=== PATIENT | female | born 1945 | race African-American/Black ===

== ENCOUNTER 2019-04-08 16:02 | Inpatient (IN) | payer MEDICARE, OTHER ==
[~2019-04-08] VITALS: Ht 177.8 cm; Wt 110.7 kg
[2019-04-08 20:58] LABS: BASO # 0.1 x10^3/uL (0.0-0.2); BASO % 1 % (0-3); EOS # 0.1 x10^3/uL (0.0-0.7); EOS % 1 % (0-3); HEMOGLOBIN 11.8 g/dL (12.0-15.5); LYMPH # 2.3 x10^3/uL (1.0-4.8); LYMPH % 14 % (24-48); MEAN CORPUSCULAR HEMOGLOBIN 24 pg (25-35); MEAN CORPUSCULAR HGB CONC 32 g/dL (31-37); MEAN CORPUSCULAR VOLUME 76 fL (79-100); MONO # 0.9 x10^3/uL (0.0-1.1); MONO % 6 % (0-9); NEUT # 13.1 x10^3/uL (1.8-7.7); NEUT % 79 % (31-73); PLATELET COUNT 571 x10^3/uL (140-400); RED CELL DISTRIBUTION WIDTH 18.5 % (11.5-14.5); WHITE BLOOD COUNT 16.6 x10^3/uL (4.0-11.0)
[2019-04-08 21:08] LABS: ANION GAP 11 (6-14); BLOOD UREA NITROGEN 28 mg/dL (7-20); BUN/CREATININE RATIO 28 (6-20); CALCIUM 9.8 mg/dL (8.5-10.1); CARBON DIOXIDE 27 mmol/L (21-32); CHLORIDE 97 mmol/L (98-107); GFR 65.6; GLUCOSE 143 mg/dL (70-99); POTASSIUM 4.3 mmol/L (3.5-5.1); SODIUM 135 mmol/L (136-145)
[2019-04-08 21:14] LABS: ALBUMIN 2.6 g/dL (3.4-5.0); ALBUMIN/GLOBULIN RATIO 0.4 (1.0-1.7); ALK PHOS 92 U/L (46-116); ALT (SGPT) < 6 U/L (14-59); AST (SGOT) 13 U/L (15-37); TOTAL BILIRUBIN 0.3 mg/dL (0.2-1.0); TOTAL PROTEIN 9.7 g/dL (6.4-8.2)
[2019-04-08 21:20] LABS: % ATYL 1 % (0-0); % BANDS 1 % (0-9); % LYMPHS 22 % (24-48); % MONOS 6 % (0-10); % SEGS 70 % (35-66); HYPOCHROMIA SLIGHT; PLT ESTIMATE ADEQUATE (ADEQUATE)
[2019-04-08 21:21] LABS: ANISOCYTOSIS SLIGHT; SCHISTOCYTES OCC; TOXIC VACUOLATION SLIGHT
[2019-04-08] MEDS ORDERED: PIP/TAZO PER PHARMACY MC PRN (21:30)
--- NOTE | 2019-04-08 21:31 | PHYS DOC ---
Past Medical History Past Medical History: Anemia, Bipolar, Depression, Diabetes-Type II, Vascular Disease, Other Additional Past Medical Histor: VENOUS INSUFFICIENCY, LYMPHADEMA, CATARACTS Past Surgical History: No Surgical History Alcohol Use: None Drug Use: None Adult General Chief Complaint Chief Complaint: OTHER COMPLAINTS HPI HPI Patient is a 73 year old AA female who presents to the emergency department via EMS with complaints of worsening drainage from bilateral lower extremities and discoloration of bilateral feet. Patient states she has had ingrowing toenails of both of her feet with weeping wounds and drainage for several months. She states that the wound care nurse practitioner comes in the sepsis her in the [facility]. She denies any change in sensation of her feet, fever, shortness of breath, wheezing, cough, chest pain, abdominal pain, nausea, vomiting, or diarrhea. Patient night any pain in her right lower extremity, however she stated that she had a small amount of pain in her left foot but did not rate and on the pain scale. According to the patient's jail paperwork she has a history of lymphedema, venous insufficiency, anemia, type 2 diabetes, delusional disorders, and bipolar. Review of Systems Review of Systems Constitutional: Denies fever or chills [] Eyes: Denies redness, or eye pain [] HENT: Denies nasal congestion or sore throat [] Respiratory: Denies cough or shortness of breath [] Cardiovascular: No additional information not addressed in HPI [] GI: Denies abdominal pain, nausea, vomiting, or diarrhea [] : Denies dysuria or hematuria [] Musculoskeletal: Denies back pain; see history of present illness Integument: See history of present illness Neurologic: Denies headache Endocrine: Denies polyuria or polydipsia [] Complete systems were reviewed and found to be within normal limits, except as documented in this note. Current Medications Current Medications Allergies Allergies Allergies Coded Allergies Type Severity Reaction Last Updated Verified peanut Allergy Unknown 04/08/19 Yes Physical Exam Physical Exam Constitutional: Well developed, well nourished, no acute distress, non-toxic appearance, obese. [] HENT: Normocephalic, atraumatic, bilateral external ears normal, nose normal. [] Eyes: PERRLA, EOMI, conjunctiva normal, no discharge. [] Neck: Normal range of motion, no stridor. [] Cardiovascular:Heart rate regular rhythm Lungs & Thorax: Bilateral breath sounds clear to auscultation, Respirations even and unlabored, no retractions, no respiratory distress [] Abdomen: soft, no tenderness Skin: Warm, dry, no erythema; multiple nodules of bilateral feet and ankles, on arrival patient was in bilateral lower extremity leg dressings that were each saturated with purulent, malodorous drainage; there is open draining wound noted to the bottom of the left foot. Cap refill of bilateral lower extremities is less than 2 seconds Extremities: No cyanosis, ROM intact, 2+ edema right lower extremity, 3+ edema left lower extremity Neurologic: Alert and oriented X 3, no focal deficits noted. [] Psychologic: Affect normal, judgement normal, mood normal. [] Current Patient Data Vital Signs Vital Signs Date Time Temp Pulse Resp B/P (MAP) Pulse Ox O2 Delivery O2 Flow Rate FiO2 04/08/19 20:58 85 131/71 (91) 98 Room Air 04/08/19 20:00 97.8 20 97.8 Lab Values Laboratory Tests Test 04/08/19 20:00 04/08/19 20:58 White Blood Count 16.6 x10^3/uL (4.0-11.0) H Red Blood Count 4.90 x10^6/uL (3.50-5.40) Hemoglobin 11.8 g/dL (12.0-15.5) L Hematocrit 37.0 % (36.0-47.0) Mean Corpuscular Volume 76 fL (79-100) L Mean Corpuscular Hemoglobin 24 pg (25-35) L Mean Corpuscular Hemoglobin Concent 32 g/dL (31-37) Red Cell Distribution Width 18.5 % (11.5-14.5) H Platelet Count 571 x10^3/uL (140-400) H Neutrophils (%) (Auto) 79 % (31-73) H Lymphocytes (%) (Auto) 14 % (24-48) L Monocytes (%) (Auto) 6 % (0-9) Eosinophils (%) (Auto) 1 % (0-3) Basophils (%) (Auto) 1 % (0-3) Neutrophils # (Auto) 13.1 x10^3/uL (1.8-7.7) H Lymphocytes # (Auto) 2.3 x10^3/uL (1.0-4.8) Monocytes # (Auto) 0.9 x10^3/uL (0.0-1.1) Eosinophils # (Auto) 0.1 x10^3/uL (0.0-0.7) Basophils # (Auto) 0.1 x10^3/uL (0.0-0.2) Segmented Neutrophils % 70 % (35-66) H Band Neutrophils % 1 % (0-9) Lymphocytes % 22 % (24-48) L Atypical Lymphocytes % (Manual) 1 % (0-0) H Monocytes % 6 % (0-10) Toxic Vacuolation Slight Platelet Estimate Adequate (ADEQUATE) Large Platelets Occ Hypochromasia Slight Anisocytosis Slight Schistocytes Occ Sodium Level 135 mmol/L (136-145) L Potassium Level 4.3 mmol/L (3.5-5.1) Chloride Level 97 mmol/L (98-107) L Carbon Dioxide Level 27 mmol/L (21-32) Anion Gap 11 (6-14) Blood Urea Nitrogen 28 mg/dL (7-20) H Creatinine 1.0 mg/dL (0.6-1.0) Estimated GFR (Cockcroft-Gault) 65.6 BUN/Creatinine Ratio 28 (6-20) H Glucose Level 143 mg/dL (70-99) H Calcium Level 9.8 mg/dL (8.5-10.1) Total Bilirubin 0.3 mg/dL (0.2-1.0) Aspartate Amino Transferase (AST) 13 U/L (15-37) L Alanine Aminotransferase (ALT) < 6 U/L (14-59) L Alkaline Phosphatase 92 U/L (46-116) Creatine Kinase 54 U/L (26-192) Creatine Kinase MB (Mass) 1.0 ng/mL (0.0-3.6) Creatine Kinase MB Relative Index 1.9 % (0-4) Total Protein 9.7 g/dL (6.4-8.2) H Albumin 2.6 g/dL (3.4-5.0) L Albumin/Globulin Ratio 0.4 (1.0-1.7) L Lactic Acid Level 1.7 mmol/L (0.4-2.0) Laboratory Tests 04/08/19 20:00 Laboratory Tests 04/08/19 20:00 EKG EKG [] Radiology/Procedures Radiology/Procedures PROCEDURE: FOOT BILAT 3V 3 views bilateral feet HISTORY: Bilateral foot wounds AP lateral oblique views bilaterally There is cutaneous gross over the feet and ankles bilaterally this is especially seen over the dorsal left foot. There is moderate bunion deformity bilaterally left worse than right. There is no lytic destructive osseous changes. IMPRESSION: 1. Cutaneous lesions diffusely could be neurofibromatosis. 2. Bilateral bunion deformity.[] Course & Med Decision Making Course & Med Decision Making Pertinent Labs and Imaging studies reviewed. (See chart for details) [address] Cameron who is the admitting physician, and care was assumed following discussion of patient, ordered vancomycin and Zosyn for pharmacy to dose, in addition to a wound consult. Patient's vital signs stable. Patient remains afebrile, appears nontoxic, respirations even and unlabored. Patient will be admitted to the med/surg floor. Patient's case and plan of care also discussed with Dr. Batista [] Markie Disclaimer Dragzina Disclaimer This electronic medical record was generated, in whole or in part, using a voice recognition dictation system. Departure Departure Impression: Primary Impression: Bilateral lower leg cellulitis Disposition: ADMITTED INPATIENT Admitting Physician: YAAKOV SOLIS) Condition: STABLE Referrals: IBIS KEYS MD (PCP) YURIDIA BEAULIEU APRN Apr 08, 2019 21:31
[2019-04-08] MEDS ORDERED: PIPERACILLIN/TAZOBACTAM 3.375 GM in IV NORMAL SALINE 50ML 50 ML IV ONE (21:45)
[2019-04-08] MEDS ORDERED: VANCOMYCIN 2 GM in IV NORMAL SALINE 500ML BAG 500 ML IV ONE (23:30)
--- NOTE | 2019-04-08 23:53 | RAD ---
3 views bilateral feet HISTORY: Bilateral foot wounds AP lateral oblique views bilaterally There is cutaneous gross over the feet and ankles bilaterally this is especially seen over the dorsal left foot. There is moderate bunion deformity bilaterally left worse than right. There is no lytic destructive osseous changes. IMPRESSION: 1. Cutaneous lesions diffusely could be neurofibromatosis. 2. Bilateral bunion deformity. Electronically signed by: Robert Weiss III, MD (04/08/2019 11:50 PM) [facility]
[2019-04-09] MEDS: VANCOMYCIN PER PHARMACY MC PRN (01:52)
--- NOTE | 2019-04-09 01:53 | NUR ---
Pharmacy Vancomycin Dosing Note S:Consulted to monitor and dose vancomycin started 04/09/19. O:WILBERTO ALVARADO is a 73 year old F with Cellulitis . Height: 5 feet, 7 inches Weight: 104.588920 kg Shepherd Body Weight: 61.60 Adjusted Body Weight: 78.68 Dosing Weight: Actual Other Antibiotics: ZOSYN 3.375GM IV Q6H LABS: Last BUN: 28 Last Creatinine: 1.0 Creatinine Clearance: 61 mL/min Last WBC: 16.6 Last Procalcitonin: Tmax (past 24 hours): Microbiology: I/O: Drug Levels: Last level: on at Last dose given at Vancomycin Dosing: Loading Dose: 2000 mg x1 04/09/19 0200 Dosing Weight: Actual Target Trough: 10-20 A: Based on: Actual Wt and CrCl P: 1. 04/09/19 1400 Vancomycin 1500 mg IV q12h 2. Follow up Trough level on 04/10/18 at 1330 3. Pharmacy will continue to monitor, follow and adjust therapy as needed. BEVERLY RAMSEY RPH, 04/09/19 0153 Signed: 04/09/19 at 0154 by BEVERLY RAMSEY RPH PHA
[2019-04-09 03:00] VITALS: BP 115/60
[2019-04-09] MEDS: PIPERACILLIN/TAZOBACTAM 3.375 GM in IV NORMAL SALINE 50ML 50 ML IV SCH ×3 (05:33→17:36)
[2019-04-09] MEDS ORDERED: CYAN500T17 PO (06:56)
[2019-04-09] MEDS ORDERED: SPIR25TA5 PO (06:56)
[2019-04-09] MEDS ORDERED: ATOR80TA72 PO (06:56)
[2019-04-09] MEDS ORDERED: METF500T16 PO (06:56)
[2019-04-09] MEDS ORDERED: ASPI-630 PO (06:56)
[2019-04-09] MEDS ORDERED: FURO20TA3 PO (06:56)
[2019-04-09] MEDS ORDERED: RISP2TAB3 PO (06:56)
[2019-04-09] MEDS ORDERED: METF10007 PO (06:56)
[2019-04-09] MEDS ORDERED: ERGO800010 PO (06:56)
[2019-04-09 07:00] VITALS: BP 114/64
[2019-04-09 11:00] VITALS: BP 109/57
[2019-04-09] MEDS: VANCOMYCIN 1.5 GM in IV NORMAL SALINE 500ML BAG 500 ML IV SCH (14:04)
--- NOTE | 2019-04-09 14:38 | NUR ---
Wound Care: Patient seen per wound care consult. See wound assessment. Patient has elephantiasis to bilateral lower legs. Wounds cleansed and assessed. Recommendations for ABD pads, blue chux pads and kerlix. Patient has been seen by our wound care HAZ TECH. Dressings applied. No other wounds noted upon complete head to toe assessment. Dressing change instructions left in room. Will follow patient regarding wound care. Bed lowered and call light in reach.
[2019-04-09 15:00] VITALS: BP 102/57
[2019-04-09 19:00] VITALS: BP 114/54
--- NOTE | 2019-04-09 19:28 | HP ---
ADMIT DATE: 04/08/2019 CHIEF COMPLAINT: Lower extremity cellulitis. HISTORY OF PRESENT ILLNESS: The patient is a pleasant 73-year-old female, presents to the emergency room with lower extremity cellulitis that has been coming on for several days. I think she actually has a chronic issue with cellulitis. She rates her symptoms as 7/10. She has associated anxiety about this. She tried increasing some home medications, but that was not working. The wounds on her feet are quite severe. She has got a lot of drainage. There are open wounds. She also has associated edema. She lives in a [facility]. I discussed the case with emergency room physician. We are going to admit the patient, consult Wound Care, and give her intravenous antibiotics. PAST MEDICAL HISTORY: Anemia, bipolar, depression, diabetes, hypertension, hyperlipidemia, venous insufficiency, lymphedema, cataracts. ALLERGIES: PEANUTS. FAMILY HISTORY: Coronary artery disease. SOCIAL HISTORY: She does not drink, smoke, or take drugs. She lives in a [facility]. MEDICATIONS: Reviewed; please refer to the MRAD. REVIEW OF SYSTEMS: GENERAL: No history of weight change, weakness, or fevers. SKIN: No bruising, hair changes, or rashes. EYES: No blurred, double, or loss of vision. NOSE AND THROAT: No history of nosebleeds, hoarseness, or sore throat. HEART: No history of palpitations, chest pain, or shortness of breath on exertion. LUNGS: Denies cough, hemoptysis, wheezing, or shortness of breath. GASTROINTESTINAL: Denies changes in appetite, nausea, vomiting, diarrhea, or constipation. GENITOURINARY: No history of frequency, urgency, hesitancy, or nocturia. NEUROLOGIC: Denies history of numbness, tingling, tremor, or weakness. PSYCHIATRIC: No history of panic, anxiety, or depression. ENDOCRINE: No history of heat or cold intolerance, polyuria, or polydipsia. EXTREMITIES: She complains of lower extremity pain, swelling, and erythema. PHYSICAL EXAMINATION: VITALS: Within normal limits and are stable. GENERAL: No apparent distress. Alert and oriented. HEENT: Normal cephalic, atraumatic. External auditory canals are patent. EYES: Extraocular muscles are intact. Pupils are equally round and reactive to light and accommodation. MUSKULOSKELETAL: Well developed, well nourished, good range of motion. ENDOCRINE: No thyromegaly was palpated. LYMPHATICS: No cervical chain or axillary nodes were noted. HEMATOPOIETIC: No bruising. NECK: Supple, no JVD, no thyromegaly was noted. LUNGS: Clear to auscultation in all lung med[place] without rhonchi or wheezing. HEART: RRR, S1, S2 present. Peripheral pulses intact, no obvious murmurs were noted. ABDOMEN: Soft, nontender. Positive bowel sounds no organomegaly, normal bowel sounds. EXTREMITIES: She has severe wounds on her feet with erythema, drainage, open wounds, and edema; please see the pictures. NEUROLOGIC: Normal speech, normal tone, A and O x3, moves all extremities, no obvious focal deficits. PSYCHIATRIC: Normal affect, normal mood, stable. SKIN: No ulcerations or rashes, good skin turgor, no jaundice. VASCULAR: Good capillary refill, neurovascular bundle appears to be intact. LABORATORY DATA: White count is 16, hemoglobin 12; sodium is 135, BUN is 20. ASSESSMENT AND PLAN: Severe lower extremity cellulitis and open wounds, probably secondary to her vascular insufficiency secondary to diabetes. The patient is being admitted. We will start intravenous antibiotics, consult Wound Care; home medications; deep vein thrombosis prophylaxis; full code; trend her labs. Prognosis long-term is guarded. SAL TRENT DO DR: INDIRA/geo JOB#: [id number] / [id number]
[2019-04-09] MEDS: LACTOBACILLUS RHAMNOSUS GG 1 CAPSULE. PO SCH (21:19)
[2019-04-09 23:00] VITALS: BP 96/68
[2019-04-10] MEDS: PIPERACILLIN/TAZOBACTAM 3.375 GM in IV NORMAL SALINE 50ML 50 ML IV SCH ×4 (00:27→18:00)
[2019-04-10] MEDS: VANCOMYCIN 1.5 GM in IV NORMAL SALINE 500ML BAG 500 ML IV SCH (02:40)
[2019-04-10 03:00] VITALS: BP 109/54
[2019-04-10 07:00] VITALS: BP 124/69
[2019-04-10] MEDS: LACTOBACILLUS RHAMNOSUS GG 1 CAPSULE. PO SCH ×2 (09:26→21:23)
--- NOTE | 2019-04-10 10:09 | PDOC ---
PROGRESS NOTES Chief Complaint Chief Complaint Past Medical History Past Medical History Past Medical History: Anemia, Bipolar, Depression, Diabetes-Type II, Vascular Disease, Other Additional Past Medical Histor: VENOUS INSUFFICIENCY, LYMPHADEMA, CATARACTS Past Surgical History: No Surgical History Alcohol Use: None Drug Use: None History of Present Illness History of Present Illness ASSESSMENT AND PLAN: Severe lower extremity cellulitis and open wounds, vascular insufficiency diabetes. Cutaneous lesions diffusely could be neurofibromatosis. admitted. intravenous antibiotics, consult Wound Care; home medications; deep vein thrombosis prophylaxis; full code; id consult Prognosis long-term is guarded. may need transfer to [facility] 37 min pt exam, chart review, > 50% of time spent with exam, chart review, pt care coordination Vitals Vitals Vital Signs Date Time Temp Pulse Resp B/P (MAP) Pulse Ox O2 Delivery O2 Flow Rate FiO2 04/10/19 09:28 Room Air 04/10/19 07:00 98.3 65 20 124/69 (87) 100 98.3 Physical Exam Physical Exam EYES: Extraocular muscles are intact. Pupils are equally round and reactive to light and accommodation. MUSKULOSKELETAL: Well developed, well nourished, good range of motion. ENDOCRINE: No thyromegaly was palpated. LYMPHATICS: No cervical chain or axillary nodes were noted. HEMATOPOIETIC: No bruising. NECK: Supple, no JVD, no thyromegaly was noted. LUNGS: Clear to auscultation in all lung medina without rhonchi or wheezing. HEART: RRR, S1, S2 present. Peripheral pulses intact, no obvious murmurs were noted. ABDOMEN: Soft, nontender. Positive bowel sounds no organomegaly, normal bowel sounds. EXTREMITIES: She has severe wounds on her feet with erythema, drainage, open wounds, and edema; MULTIPLE Fibroid type lesions NEUROLOGIC: Normal speech, normal tone, A and O x3, moves all extremities, no obvious focal deficits. PSYCHIATRIC: Normal affect, normal mood, stable. SKIN: no jaundice. VASCULAR: Good capillary refill, neurovascular bundle appears to be intact. General: Alert, Oriented X3, Cooperative, No acute distress, mild distress Lungs: Clear Abdomen: Soft, No tenderness Extremities: No cyanosis Labs LABS PATIENT: WILBERTO ALVARADO ACCOUNT: [id number] : 1945 LOCATION: [address] [place] [address] AGE: 73 SEX: F EXAM STATUS: ADM IN ORD. PHYSICIAN: YURIDIA BEAULIEU APRN REASON: BILATERAL FOOT WOUNDS PROCEDURE: FOOT BILAT 3V 3 views bilateral feet HISTORY: Bilateral foot wounds AP lateral oblique views bilaterally There is cutaneous gross over the feet and ankles bilaterally this is especially seen over the dorsal left foot. There is moderate bunion deformity bilaterally left worse than right. There is no lytic destructive osseous changes. IMPRESSION: 1. Cutaneous lesions diffusely could be neurofibromatosis. 2. Bilateral bunion deformity. Electronically signed by: Blanca Tinoco III, MD (04/08/2019 11:50 PM) [facility] DICTATED and SIGNED BY: BLANCA TINOCO III, MD DATE: 04/08/192349 Laboratory Tests Test 04/09/19 11:04 04/09/19 16:39 04/09/19 20:36 04/10/19 07:36 Glucose (Fingerstick) 162 mg/dL (70-99) 116 mg/dL (70-99) 156 mg/dL (70-99) 95 mg/dL (70-99) Assessment and Plan Assessmemt and Plan Problems Medical Problems: (1) Bilateral lower leg cellulitis Status: Acute Comment Review of Relevant I have reviewed the following items mariela (where applicable) has been applied. Labs Laboratory Tests Test 04/08/19 20:00 04/08/19 20:58 04/09/19 07:59 04/09/19 11:04 White Blood Count 16.6 x10^3/uL (4.0-11.0) Red Blood Count 4.90 x10^6/uL (3.50-5.40) Hemoglobin 11.8 g/dL (12.0-15.5) Hematocrit 37.0 % (36.0-47.0) Mean Corpuscular Volume 76 fL (79-100) Mean Corpuscular Hemoglobin 24 pg (25-35) Mean Corpuscular Hemoglobin Concent 32 g/dL (31-37) Red Cell Distribution Width 18.5 % (11.5-14.5) Platelet Count 571 x10^3/uL (140-400) Neutrophils (%) (Auto) 79 % (31-73) Lymphocytes (%) (Auto) 14 % (24-48) Monocytes (%) (Auto) 6 % (0-9) Eosinophils (%) (Auto) 1 % (0-3) Basophils (%) (Auto) 1 % (0-3) Neutrophils # (Auto) 13.1 x10^3/uL (1.8-7.7) Lymphocytes # (Auto) 2.3 x10^3/uL (1.0-4.8) Monocytes # (Auto) 0.9 x10^3/uL (0.0-1.1) Eosinophils # (Auto) 0.1 x10^3/uL (0.0-0.7) Basophils # (Auto) 0.1 x10^3/uL (0.0-0.2) Segmented Neutrophils % 70 % (35-66) Band Neutrophils % 1 % (0-9) Lymphocytes % 22 % (24-48) Atypical Lymphocytes % (Manual) 1 % (0-0) Monocytes % 6 % (0-10) Toxic Vacuolation Slight Platelet Estimate Adequate (ADEQUATE) Large Platelets Occ Hypochromasia Slight Anisocytosis Slight Schistocytes Occ Sodium Level 135 mmol/L (136-145) Potassium Level 4.3 mmol/L (3.5-5.1) Chloride Level 97 mmol/L (98-107) Carbon Dioxide Level 27 mmol/L (21-32) Anion Gap 11 (6-14) Blood Urea Nitrogen 28 mg/dL (7-20) Creatinine 1.0 mg/dL (0.6-1.0) Estimated GFR (Cockcroft-Gault) 65.6 BUN/Creatinine Ratio 28 (6-20) Glucose Level 143 mg/dL (70-99) Calcium Level 9.8 mg/dL (8.5-10.1) Total Bilirubin 0.3 mg/dL (0.2-1.0) Aspartate Amino Transf (AST/SGOT) 13 U/L (15-37) Alanine Aminotransferase (ALT/SGPT) < 6 U/L (14-59) Alkaline Phosphatase 92 U/L (46-116) Creatine Kinase 54 U/L (26-192) Creatine Kinase MB (Mass) 1.0 ng/mL (0.0-3.6) Creatine Kinase MB Relative Index 1.9 % (0-4) Total Protein 9.7 g/dL (6.4-8.2) Albumin 2.6 g/dL (3.4-5.0) Albumin/Globulin Ratio 0.4 (1.0-1.7) Lactic Acid Level 1.7 mmol/L (0.4-2.0) Glucose (Fingerstick) 114 mg/dL (70-99) 162 mg/dL (70-99) Test 04/09/19 16:39 04/09/19 20:36 04/10/19 07:36 Glucose (Fingerstick) 116 mg/dL (70-99) 156 mg/dL (70-99) 95 mg/dL (70-99) Laboratory Tests Test 04/09/19 11:04 04/09/19 16:39 04/09/19 20:36 04/10/19 07:36 Glucose (Fingerstick) 162 mg/dL (70-99) 116 mg/dL (70-99) 156 mg/dL (70-99) 95 mg/dL (70-99) Medications Current Medications Vancomycin HCl (Vanco Per Pharmacy) 1 each PRN DAILY PRN MC SEE COMMENTS Last administered on 04/09/19at 01:52; Start 04/08/19 at 21:30 Piperacillin Sod/ Tazobactam Sod (Zosyn Per Pharmacy) 1 each PRN DAILY PRN MC SEE COMMENTS; Start 04/08/19 at 21:30 Piperacillin Sod/ Tazobactam Sod 3.375 gm/Sodium Chloride 50 ml @ 100 mls/hr 1X ONCE IV Last administered on 04/08/19at 21:50; Start 04/08/19 at 21:45; Stop 04/08/19 at 22:14; Status DC Vancomycin HCl 2 gm/Sodium Chloride 500 ml @ 250 mls/hr 1X ONCE IV Last administered on 04/09/19at 02:04; Start 04/08/19 at 23:30; Stop 04/09/19 at 01:30; Status DC Piperacillin Sod/ Tazobactam Sod 3.375 gm/Sodium Chloride 50 ml @ 100 mls/hr Q6HRS IV Last administered on 04/10/19at 06:11; Start 04/09/19 at 06:00 Vancomycin HCl 1.5 gm/Sodium Chloride 500 ml @ 250 mls/hr Q12H IV Last administered on 04/10/19at 02:40; Start 04/09/19 at 14:00 Vancomycin HCl (Vancomycin Trough Level) 1 each 1X ONCE MC ; Start 04/10/19 at 13:30; Stop 04/10/19 at 13:31 Lactobacillus Rhamnosus (Culturelle) 1 cap BID PO Last administered on 04/10/19at 09:26; Start 04/09/19 at 21:00 Active Scripts Active Reported Spironolactone 25 Mg Tablet 1 Tab PO DAILY Risperidone 2 Mg Tablet 2 Mg PO DAILY Metformin Hcl 1,000 Mg Tablet 1,000 Mg PO [id number] Metformin Hcl 500 Mg Tablet 500 Mg PO QEVNG Furosemide 20 Mg Tablet 20 Mg PO DAILY Ergocalciferol (Ergocalciferol (Vitamin D2)) 8,000 Unit/1 Ml Drops 50,000 Unit PO WEEKLY B-12 (Cyanocobalamin (Vitamin B-12)) 500 Mcg Tablet 1 Tab PO DAILY 30 Days Atorvastatin Calcium 80 Mg Tablet 10 Mg PO QHS Aspirin 81 Mg Tab.chew 1 Tab PO DAILY Vitals/I & O Vital Sign - Last 24 Hours 04/09/19 04/09/19 04/09/19 04/09/19 11:00 15:00 19:00 19:45 Temp 98.0 98.8 98.0 98.0 98.8 98.0 Pulse 85 82 85 Resp 18 18 20 B/P (MAP) 109/57 (74) 102/57 (72) 114/54 (74) Pulse Ox 96 97 98 O2 Delivery Room Air Room Air Room Air Room Air 04/09/19 04/10/19 04/10/19 04/10/19 23:00 03:00 07:00 09:28 Temp 98.6 97.6 98.3 98.6 97.6 98.3 Pulse 76 63 65 Resp 20 18 20 B/P (MAP) 96/68 (77) 109/54 (72) 124/69 (87) Pulse Ox 100 98 100 O2 Delivery Room Air Room Air Room Air Room Air Intake and Output 04/09/19 04/09/19 04/10/19 15:00 23:00 07:00 Intake Total 100 ml 1250 ml 100 ml Balance 100 ml 1250 ml 100 ml TYLER WHITE MD Apr 10, 2019 10:09
[2019-04-10 11:00] VITALS: BP 116/54
--- NOTE | 2019-04-10 12:27 | NUR ---
0600 zosyn did not get unclamped so running that dose for pt 1200 dose of zosyn. will continue to monitor.
[2019-04-10 14:19] LABS: BASO # 0.1 x10^3/uL (0.0-0.2); BASO % 1 % (0-3); EOS # 0.2 x10^3/uL (0.0-0.7); EOS % 2 % (0-3); HEMATOCRIT 31.9 % (36.0-47.0); HEMOGLOBIN 10.4 g/dL (12.0-15.5); LYMPH # 1.5 x10^3/uL (1.0-4.8); LYMPH % 14 % (24-48); MEAN CORPUSCULAR HEMOGLOBIN 25 pg (25-35); MEAN CORPUSCULAR HGB CONC 33 g/dL (31-37); MEAN CORPUSCULAR VOLUME 75 fL (79-100); MONO # 0.8 x10^3/uL (0.0-1.1); MONO % 8 % (0-9); NEUT % 76 % (31-73); PLATELET COUNT 498 x10^3/uL (140-400); RED BLOOD COUNT 4.24 x10^6/uL (3.50-5.40); RED CELL DISTRIBUTION WIDTH 18.3 % (11.5-14.5); WHITE BLOOD COUNT 10.6 x10^3/uL (4.0-11.0)
[2019-04-10 14:29] LABS: CREATININE 0.9 mg/dL (0.6-1.0); GFR 74.1; POTASSIUM 3.9 mmol/L (3.5-5.1)
[2019-04-10 14:35] LABS: VANC TR 20.4 mcg/mL (10.0-20.0)
[2019-04-10] MEDS ORDERED: ONDANSETRON PF 4 MG/2 ML VIAL. IV PRN (14:45)
[2019-04-10] MEDS ORDERED: DOCUSATE SODIUM 100 MG CAPSULE. PO PRN (14:45)
[2019-04-10] MEDS ORDERED: LORazepam 0.5 MG TABLET PO PRN (14:45)
[2019-04-10] MEDS ORDERED: guaiFENesin ORAL 200 MG/10 ML LIQUID. PO PRN (14:45)
[2019-04-10] MEDS ORDERED: ALBUTEROL SULFATE 2.5 MG/3 ML NEBU. NEB PRN (14:45)
[2019-04-10] MEDS ORDERED: MAG HYDROX/ALUMINUM HYD/SIMETH 30 ML ORAL.SUSP PO PRN (14:45)
[2019-04-10] MEDS ORDERED: 0.9 % SODIUM CHLORIDE 10 ML DISP.SYRIN. IV PRN (14:45)
[2019-04-10] MEDS ORDERED: cloNIDine HCL 0.1 MG TABLET PO PRN (14:45)
[2019-04-10] MEDS ORDERED: ACETAMINOPHEN 325 MG TABLET. PO PRN (14:45)
[2019-04-10] MEDS: VANCOMYCIN PER PHARMACY MC PRN (14:53)
[2019-04-10 15:00] VITALS: BP 95/47
--- NOTE | 2019-04-10 15:00 | NUR ---
Pharmacy Vancomycin Dosing Note S:Consulted to monitor and dose vancomycin started 04/09/19. O:WILBERTO ALVARADO is a 73 year old F with Cellulitis . Height: 5 feet, 10 inches Weight: 110.570459 kg Lohn Body Weight: 68.50 Adjusted Body Weight: 82.82 Dosing Weight: Actual Other Antibiotics: ZOSYN 3.375GM IV Q6H LABS: Last BUN: 28 Last Creatinine: 1.0 Creatinine Clearance: 61 mL/min Last WBC: 16.6 Last Procalcitonin: Tmax (past 24 hours): Microbiology: I/O: Drug Levels: Last Trough level: 20.4 on 04/10/19 at 1400 Last dose given 04/10/19 at 0200 Vancomycin Dosing: Loading Dose: 2000 mg x1 Dosing Weight: Actual Target Trough: 10-20 A: Based on: LEVEL P: 1. Change Vancomycin 1500 mg IV q18h 2. Follow up Trough level NEEDED 3. Pharmacy will continue to monitor, follow and adjust therapy as needed. FROILAN RECINOS Mady, 04/10/19 1500
[2019-04-10] MEDS: IV NORMAL SALINE 1000ML BAG 1,000 ML IV SCH (15:18)
--- NOTE | 2019-04-10 15:48 | PDOC ---
Infectious Disease Note Vital Signs: Vital Signs Vital Signs Date Time Temp Pulse Resp B/P (MAP) Pulse Ox O2 Delivery O2 Flow Rate FiO2 04/10/19 15:00 98.4 67 20 95/47 (63) 99 Room Air 98.4 Physical Exam: PHYSICAL EXAM Medications: Inpatient Meds: Current Medications Medications (Trade) Dose Ordered Sig/Curly Start Time Stop Time Status Last Admin Dose Admin Acetaminophen (Tylenol) 650 mg PRN Q4HRS PRN 04/10/19 14:45 Al Hydroxide/Mg Hydroxide (Mylanta Plus Xs) 30 ml PRN DAILY PRN 04/10/19 14:45 Albuterol Sulfate (Ventolin Neb Soln) 2.5 mg PRN Q4HRS PRN 04/10/19 14:45 Clonidine HCl (Catapres) 0.1 mg PRN Q6HRS PRN 04/10/19 14:45 Docusate Sodium (Colace) 100 mg PRN BID PRN 04/10/19 14:45 Guaifenesin (Robitussin) 200 mg PRN Q4HRS PRN 04/10/19 14:45 Lactobacillus Rhamnosus (Culturelle) 1 cap BID 04/09/19 21:00 04/10/19 09:26 1 CAP Lorazepam (Ativan) 0.5 mg PRN Q4HRS PRN 04/10/19 14:45 Ondansetron HCl (Zofran) 4 mg PRN Q4HRS PRN 04/10/19 14:45 Piperacillin Sod/ Tazobactam Sod (Zosyn Per Pharmacy) 1 each PRN DAILY PRN 04/08/19 21:30 Piperacillin Sod/ Tazobactam Sod 3.375 gm/Sodium Chloride 50 ml @ 100 mls/hr Q6HRS 04/09/19 06:00 04/10/19 12:24 100 MLS/HR Sodium Chloride 1,000 ml @ 60 mls/hr [id number] 04/10/19 14:39 04/10/19 15:18 60 MLS/HR Sodium Chloride (Normal Saline Flush) 3 ml QSHIFT PRN 04/10/19 14:45 Vancomycin HCl (Vanco Per Pharmacy) 1 each PRN DAILY PRN 04/08/19 21:30 04/10/19 14:53 1 EACH Vancomycin HCl (Vancomycin Trough Level) 1 each 1X ONCE 04/10/19 13:30 04/10/19 13:31 DC 04/10/19 13:30 1 EACH Vancomycin HCl 1.5 gm/Sodium Chloride 500 ml @ 250 mls/hr Q18H 04/10/19 17:00 Vancomycin HCl 2 gm/Sodium Chloride 500 ml @ 250 mls/hr 1X ONCE 04/08/19 23:30 04/09/19 01:30 DC 04/09/19 02:04 250 MLS/HR Labs: Lab Laboratory Tests Test 04/09/19 16:39 04/09/19 20:36 04/10/19 07:36 04/10/19 10:56 Glucose (Fingerstick) 116 mg/dL (70-99) 156 mg/dL (70-99) 95 mg/dL (70-99) 136 mg/dL (70-99) Test 04/10/19 14:00 White Blood Count 10.6 x10^3/uL (4.0-11.0) Red Blood Count 4.24 x10^6/uL (3.50-5.40) Hemoglobin 10.4 g/dL (12.0-15.5) Hematocrit 31.9 % (36.0-47.0) Mean Corpuscular Volume 75 fL (79-100) Mean Corpuscular Hemoglobin 25 pg (25-35) Mean Corpuscular Hemoglobin Concent 33 g/dL (31-37) Red Cell Distribution Width 18.3 % (11.5-14.5) Platelet Count 498 x10^3/uL (140-400) Neutrophils (%) (Auto) 76 % (31-73) Lymphocytes (%) (Auto) 14 % (24-48) Monocytes (%) (Auto) 8 % (0-9) Eosinophils (%) (Auto) 2 % (0-3) Basophils (%) (Auto) 1 % (0-3) Neutrophils # (Auto) 8.0 x10^3/uL (1.8-7.7) Lymphocytes # (Auto) 1.5 x10^3/uL (1.0-4.8) Monocytes # (Auto) 0.8 x10^3/uL (0.0-1.1) Eosinophils # (Auto) 0.2 x10^3/uL (0.0-0.7) Basophils # (Auto) 0.1 x10^3/uL (0.0-0.2) Sodium Level 139 mmol/L (136-145) Potassium Level 3.9 mmol/L (3.5-5.1) Chloride Level 104 mmol/L (98-107) Carbon Dioxide Level 29 mmol/L (21-32) Anion Gap 6 (6-14) Blood Urea Nitrogen 14 mg/dL (7-20) Creatinine 0.9 mg/dL (0.6-1.0) Estimated GFR (Cockcroft-Gault) 74.1 Glucose Level 137 mg/dL (70-99) Calcium Level 9.0 mg/dL (8.5-10.1) Vancomycin Level Trough 20.4 mcg/mL (10.0-20.0) Vancomycin Last Dose Date 04/10/19 Vancomycin Last Dose Time 0200 Objective: Assessment: Pt seen and examined Plan: Plan of Care ID consult dictated [id number] Thank you ULISES SCHAEFER MD Apr 10, 2019 15:48
--- NOTE | 2019-04-10 16:12 | NUR ---
Pharmacy Vancomycin Dosing Note S:Consulted to monitor and dose vancomycin started 04/09/19. O:WILBERTO ALVARADO is a 73 year old F with Cellulitis . Height: 5 feet, 10 inches Weight: 110.972674 kg Mcintosh Body Weight: 68.50 Adjusted Body Weight: 82.82 Dosing Weight: Actual Other Antibiotics: ZOSYN 3.375GM IV Q6H LABS: Last BUN: 28 Last Creatinine: 1.0 Creatinine Clearance: 61 mL/min Last WBC: 16.6 Last Procalcitonin: Tmax (past 24 hours): Microbiology: I/O: Drug Levels: Last Trough level: 20.4 on 04/10/19 at 1400 Last dose given 04/10/19 at 0200 Vancomycin Dosing: Loading Dose: 2000 mg x1 Dosing Weight: Actual Target Trough: 10-20 A: Based on: LEVEL (ROEL 30 MINUTES LATE) P: 1. Change Vancomycin 1500 mg IV q18h 2. Follow up Trough level NEEDED 3. Pharmacy will continue to monitor, follow and adjust therapy as needed. FROILAN RECINOS [facility], 04/10/19 [id number]
[2019-04-10] MEDS ORDERED: VANCOMYCIN 1.5 GM in IV NORMAL SALINE 500ML BAG 500 ML IV SCH (17:00)
--- NOTE | 2019-04-10 17:59 | NUR ---
was unable to give 1600 abx and still unable to give 1800 abx due to no venous access. pt needs antibiotics so will leave on eMAR until venous access is obtained. pt is getting a PICC line lalaight, will notify night RN. notified dr edwards of situation. notified pharmacy and they stated it was ok as long as pt receives abx's as soon as possible. will continue to monitor.
[2019-04-10 19:00] VITALS: BP 112/51
--- NOTE | 2019-04-10 19:26 | NUR ---
2 nurses attempted on day shift to place and IV catheter on this pt at 1430. called nursing filter press supervisor but she was unable to attempt an IV. received an order for a midline catheter to be placed but pt does not want one at this time and they are unable to be here until midnight. notified night RN, Perla. Griselda RN at night is attempting an IV at this time. will continue to monitor.
[2019-04-10] MEDS: LINEZOLID 600 MG TABLET PO SCH (21:23)
[2019-04-10 23:00] VITALS: BP 122/58
[2019-04-11] MEDS: PIPERACILLIN/TAZOBACTAM 3.375 GM in IV NORMAL SALINE 50ML 50 ML IV SCH ×4 (00:55→17:31)
--- NOTE | 2019-04-11 01:45 | CONS ---
DATE OF CONSULTATION: REFERRING PHYSICIAN: Dr. Bunn. REASON FOR CONSULTATION: Foot and ankle wound. HISTORY OF PRESENT ILLNESS: A 73-year-old female residing at care home, was brought to the ER on 04/09/2019 with worsening drainage from both lower extremities. The patient has chronic venous stasis with elephantiasis, and cobblestoning with venous stasis. The patient has chronic changes of dependent edema, has crusted lesions. She has increased drainage over the several months. Wound care practitioner came to the care home. She denies any fevers, chills, nausea, vomiting, diarrhea, abdominal pain. White count was elevated at 16.6. Lactate was normal at 1.7. Creatinine was 1.0. The patient underwent x-ray of both lower extremities, which showed cutaneous lesion diffusely, could be from neurofibromatosis, bilateral bunion deformity. The patient was started on IV vancomycin and Zosyn. ID consult has been requested for antibiotic management. Today, the patient states that she feels that her edema is slightly improved, though per nursing, she continues to still have drainage from numerous wounds in both the lower extremities. She does have chronic lymphedema as above with chronic venous stasis, has dependent edema. Usually whenever she tries to elevate her leg, her edema goes down. She denies being on any recent antibiotics. She has been evaluated by Plastic Surgery at and has followed by wound team there also. Denies any recent antibiotic treatment. Denies hospitalization at other hospitals for any recent infection. PAST MEDICAL HISTORY: Diabetes, morbid obesity, chronic venous stasis, chronic lymphedema, hyperlipidemia, depression, bipolar disorder. REVIEW OF SYSTEMS: Negative for fevers, chills, nausea, vomiting, diarrhea, headache, sore throat, difficulty swallowing, nausea, vomiting, diarrhea, abdominal pain, shortness of breath, has chronic lymphedema as above, chronic wounds. CURRENT MEDICATION: IV vancomycin and Zosyn. Other medications reviewed in medication list. ALLERGIES: PEANUT. SOCIAL HISTORY: Denies smoking, ETOH, or illicit drug use. snf resident. PHYSICAL EXAMINATION: VITAL SIGNS: Temperature 98.4, pulse 67, respiratory rate 20, blood pressure 95/47, oxygen saturation 99% on room air. GENERAL: Alert and oriented x 3 female, well-developed, well-nourished, obese, sitting in chair, in no acute distress, pleasant, cooperative. HEENT: Normocephalic, atraumatic, anicteric, edentulous. No oral lesions. NECK: Supple, no JVD. LUNGS: Clear bilaterally. No wheezing. HEART: S1, S2. No gallops or murmurs. ABDOMEN: Soft, nontender, obese. Bowel sounds present. EXTREMITIES: Both lower extremity wounds are dressed. 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 NEUROLOGIC: Alert and oriented x 3, grossly nonfocal. PSYCHIATRIC: Cooperative, appropriate mood and affect. DERMATOLOGIC: Warm and dry. No generalized rash except for above. LABORATORY DATA: WBC 16.6, was 10.6, hemoglobin 10.4, hematocrit 31.9, platelets 498. Sodium 139, potassium 3.9, chloride 104, bicarbonate 29, BUN 14, creatinine 0.9, glucose 137, calcium 9.0. Vancomycin trough 20.4. IMAGING: Foot x-ray, cutaneous lesions diffusely, could be from neurofibromatosis, bilateral bunion deformity. Blood culture pending. Anaerobic-aerobic culture from wound swab pending. IMPRESSION: 1. History of chronic venous stasis and lymphedema with elephantiasis, and cobblestoning like nodules, extensive with superficial ulceration and weeping lesions from chronic venous stasis below the knees bilaterally. 2. Superimposed cellulitis. 3. Vascular insufficiency. 4. Diabetes mellitus. 5. Anemia. 6. Bipolar disorder. 7. Depression. 8. Hypertension. 9. Hyperlipidemia. 10. Obesity. RECOMMENDATIONS: 1. Continue Zosyn. 2. Discontinue vancomycin. 3. Start Zyvox. 4. Start micafungin. 5. Follow up cultures and labs. 6. Continue supportive care. 7. Continue wound management per wound team. 8. Elevate leg. 9. Optimal edema control. 10. Optimal diabetes control. 11. Discussed with nursing staff. Thank you, Dr. Bunn for consulting Infectious Disease to participate in this patient's care. If you have any questions, do not hesitate to contact me. ULISES SCHAEFER MD DR: COLTON/geo JOB#: [id number] / [id number]
[2019-04-11] MEDS: MICAFUNGIN 100 MG in IV DEXTROSE 5% 100ML 100 ML IV SCH ×2 (01:53→14:59)
[2019-04-11 03:00] VITALS: BP 118/68
--- NOTE | 2019-04-11 04:45 | NUR ---
Assumed pt care at this time. Pt asleep in chair. Call light within reach. Will cont to monitor.
[2019-04-11 05:17] LABS: BASO # 0.1 x10^3/uL (0.0-0.2); BASO % 1 % (0-3); EOS # 0.3 x10^3/uL (0.0-0.7); EOS % 2 % (0-3); HEMATOCRIT 31.8 % (36.0-47.0); HEMOGLOBIN 10.4 g/dL (12.0-15.5); LYMPH % 18 % (24-48); MEAN CORPUSCULAR HEMOGLOBIN 25 pg (25-35); MEAN CORPUSCULAR HGB CONC 33 g/dL (31-37); MEAN CORPUSCULAR VOLUME 75 fL (79-100); MONO # 0.7 x10^3/uL (0.0-1.1); MONO % 6 % (0-9); NEUT % 73 % (31-73); PLATELET COUNT 500 x10^3/uL (140-400); RED BLOOD COUNT 4.22 x10^6/uL (3.50-5.40); RED CELL DISTRIBUTION WIDTH 18.2 % (11.5-14.5); WHITE BLOOD COUNT 10.9 x10^3/uL (4.0-11.0)
[2019-04-11 05:54] LABS: ALBUMIN 2.2 g/dL (3.4-5.0); ALBUMIN/GLOBULIN RATIO 0.4 (1.0-1.7); CALCIUM 9.1 mg/dL (8.5-10.1); CREATININE 0.8 mg/dL (0.6-1.0); GFR 84.8; TOTAL BILIRUBIN 0.2 mg/dL (0.2-1.0); TOTAL PROTEIN 7.8 g/dL (6.4-8.2)
[2019-04-11] MEDS: IV NORMAL SALINE 1000ML BAG 1,000 ML IV SCH ×2 (06:02→23:59)
[2019-04-11 07:00] VITALS: BP 114/54
--- NOTE | 2019-04-11 08:57 | PDOC ---
Infectious Disease Note Vital Signs: Vital Signs Vital Signs Date Time Temp Pulse Resp B/P (MAP) Pulse Ox O2 Delivery O2 Flow Rate FiO2 04/11/19 08:00 Room Air 04/11/19 07:00 98.4 74 16 114/54 (74) 99 98.4 Physical Exam: PHYSICAL EXAM GENERAL: Alert and oriented x 3 female, well-developed, well-nourished, obese, sitting in chair, in no acute distress, pleasant, cooperative. HEENT: Normocephalic, atraumatic, anicteric, edentulous. No oral lesions. NECK: Supple, no JVD. LUNGS: Clear bilaterally. No wheezing. HEART: S1, S2. No gallops or murmurs. ABDOMEN: Soft, nontender, obese. Bowel sounds present. EXTREMITIES: Both lower extremity wounds are dressed. 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 NEUROLOGIC: Alert and oriented x 3, grossly nonfocal. PSYCHIATRIC: Cooperative, appropriate mood and affect. DERMATOLOGIC: Warm and dry. No generalized rash except for above. Medications: Inpatient Meds: Current Medications Medications (Trade) Dose Ordered Sig/Curly Start Time Stop Time Status Last Admin Dose Admin Acetaminophen (Tylenol) 650 mg PRN Q4HRS PRN 04/10/19 14:45 Al Hydroxide/Mg Hydroxide (Mylanta Plus Xs) 30 ml PRN DAILY PRN 04/10/19 14:45 Albuterol Sulfate (Ventolin Neb Soln) 2.5 mg PRN Q4HRS PRN 04/10/19 14:45 Clonidine HCl (Catapres) 0.1 mg PRN Q6HRS PRN 04/10/19 14:45 Docusate Sodium (Colace) 100 mg PRN BID PRN 04/10/19 14:45 Guaifenesin (Robitussin) 200 mg PRN Q4HRS PRN 04/10/19 14:45 Lactobacillus Rhamnosus (Culturelle) 1 cap BID 04/09/19 21:00 04/10/19 21:23 1 CAP Linezolid (Zyvox) 600 mg BID 04/10/19 21:00 04/10/19 21:23 600 MG Lorazepam (Ativan) 0.5 mg PRN Q4HRS PRN 04/10/19 14:45 Micafungin Sodium 100 mg/Dextrose 100 ml @ 100 mls/hr Q24H 04/10/19 16:00 04/11/19 01:53 100 MLS/HR Ondansetron HCl (Zofran) 4 mg PRN Q4HRS PRN 04/10/19 14:45 Piperacillin Sod/ Tazobactam Sod (Zosyn Per Pharmacy) 1 each PRN DAILY PRN 04/08/19 21:30 Piperacillin Sod/ Tazobactam Sod 3.375 gm/Sodium Chloride 50 ml @ 100 mls/hr Q6HRS 04/09/19 06:00 04/11/19 06:01 100 MLS/HR Sodium Chloride 1,000 ml @ 60 mls/hr [id number] 04/10/19 14:39 04/11/19 06:02 60 MLS/HR Sodium Chloride (Normal Saline Flush) 3 ml QSHIFT PRN 04/10/19 14:45 Vancomycin HCl (Vanco Per Pharmacy) 1 each PRN DAILY PRN 04/08/19 21:30 04/10/19 15:49 DC 04/10/19 14:53 1 EACH Vancomycin HCl (Vancomycin Trough Level) 1 each 1X ONCE 04/10/19 13:30 04/10/19 13:31 DC 04/10/19 13:30 1 EACH Vancomycin HCl 1.5 gm/Sodium Chloride 500 ml @ 250 mls/hr Q18H 04/10/19 17:00 04/10/19 15:48 DC Vancomycin HCl 2 gm/Sodium Chloride 500 ml @ 250 mls/hr 1X ONCE 04/08/19 23:30 04/09/19 01:30 DC 04/09/19 02:04 250 MLS/HR Labs: Lab Laboratory Tests Test 04/10/19 10:56 04/10/19 14:00 04/10/19 16:24 04/10/19 20:57 Glucose (Fingerstick) 136 mg/dL (70-99) 127 mg/dL (70-99) 157 mg/dL (70-99) White Blood Count 10.6 x10^3/uL (4.0-11.0) Red Blood Count 4.24 x10^6/uL (3.50-5.40) Hemoglobin 10.4 g/dL (12.0-15.5) Hematocrit 31.9 % (36.0-47.0) Mean Corpuscular Volume 75 fL (79-100) Mean Corpuscular Hemoglobin 25 pg (25-35) Mean Corpuscular Hemoglobin Concent 33 g/dL (31-37) Red Cell Distribution Width 18.3 % (11.5-14.5) Platelet Count 498 x10^3/uL (140-400) Neutrophils (%) (Auto) 76 % (31-73) Lymphocytes (%) (Auto) 14 % (24-48) Monocytes (%) (Auto) 8 % (0-9) Eosinophils (%) (Auto) 2 % (0-3) Basophils (%) (Auto) 1 % (0-3) Neutrophils # (Auto) 8.0 x10^3/uL (1.8-7.7) Lymphocytes # (Auto) 1.5 x10^3/uL (1.0-4.8) Monocytes # (Auto) 0.8 x10^3/uL (0.0-1.1) Eosinophils # (Auto) 0.2 x10^3/uL (0.0-0.7) Basophils # (Auto) 0.1 x10^3/uL (0.0-0.2) Sodium Level 139 mmol/L (136-145) Potassium Level 3.9 mmol/L (3.5-5.1) Chloride Level 104 mmol/L (98-107) Carbon Dioxide Level 29 mmol/L (21-32) Anion Gap 6 (6-14) Blood Urea Nitrogen 14 mg/dL (7-20) Creatinine 0.9 mg/dL (0.6-1.0) Estimated GFR (Cockcroft-Gault) 74.1 Glucose Level 137 mg/dL (70-99) Calcium Level 9.0 mg/dL (8.5-10.1) Vancomycin Level Trough 20.4 mcg/mL (10.0-20.0) Vancomycin Last Dose Date 04/10/19 Vancomycin Last Dose Time 0200 Test 04/11/19 04:35 04/11/19 07:55 White Blood Count 10.9 x10^3/uL (4.0-11.0) Red Blood Count 4.22 x10^6/uL (3.50-5.40) Hemoglobin 10.4 g/dL (12.0-15.5) Hematocrit 31.8 % (36.0-47.0) Mean Corpuscular Volume 75 fL (79-100) Mean Corpuscular Hemoglobin 25 pg (25-35) Mean Corpuscular Hemoglobin Concent 33 g/dL (31-37) Red Cell Distribution Width 18.2 % (11.5-14.5) Platelet Count 500 x10^3/uL (140-400) Neutrophils (%) (Auto) 73 % (31-73) Lymphocytes (%) (Auto) 18 % (24-48) Monocytes (%) (Auto) 6 % (0-9) Eosinophils (%) (Auto) 2 % (0-3) Basophils (%) (Auto) 1 % (0-3) Neutrophils # (Auto) 8.0 x10^3/uL (1.8-7.7) Lymphocytes # (Auto) 2.0 x10^3/uL (1.0-4.8) Monocytes # (Auto) 0.7 x10^3/uL (0.0-1.1) Eosinophils # (Auto) 0.3 x10^3/uL (0.0-0.7) Basophils # (Auto) 0.1 x10^3/uL (0.0-0.2) Sodium Level 138 mmol/L (136-145) Potassium Level 4.0 mmol/L (3.5-5.1) Chloride Level 103 mmol/L (98-107) Carbon Dioxide Level 24 mmol/L (21-32) Anion Gap 11 (6-14) Blood Urea Nitrogen 14 mg/dL (7-20) Creatinine 0.8 mg/dL (0.6-1.0) Estimated GFR (Cockcroft-Gault) 84.8 BUN/Creatinine Ratio 18 (6-20) Glucose Level 142 mg/dL (70-99) Calcium Level 9.1 mg/dL (8.5-10.1) Total Bilirubin 0.2 mg/dL (0.2-1.0) Aspartate Amino Transf (AST/SGOT) 12 U/L (15-37) Alanine Aminotransferase (ALT/SGPT) 6 U/L (14-59) Alkaline Phosphatase 75 U/L (46-116) Total Protein 7.8 g/dL (6.4-8.2) Albumin 2.2 g/dL (3.4-5.0) Albumin/Globulin Ratio 0.4 (1.0-1.7) Glucose (Fingerstick) 124 mg/dL (70-99) Micro RUN DATE: 04/10/19 [facility] LAB *LIVE* PAGE 1 RUN TIME: 1710 Specimen Inquiry PATIENT: CHRISTIANOWILBERTO ACCT: [id number] LOC: [address] [place] [address] U: [id number] AGE/SX: 73/F ROOM: [facility] RE04/08/[address]: SAL TRENT III, DO : 1945 BED: 1 DIS: STATUS: ADM IN TLOC: SPEC #: [id number] CONNIE: 04/08/19 STATUS: RES REQ #: [id number] RECD: 04/08/[address]: YURIDIA BEAULIEU APRN SOURCE: FOOT ENTR: 04/08/[address]: IBIS KEYS MD [facility]: WOUND ORDERED: ANAER/AEROB/GS COMMENTS: LEFT FOOT WOUND Procedure Result ANAEROBIC-AEROBIC CULTURE PENDING ANAEROBIC RES 1 PENDING AEROBIC CULT PENDING AEROBIC RES 1 PENDING GRAM STAIN Final Final report GRAM STAIN RES 1 Final Comment Many gram negative rods. GRAM STAIN RES 2 Final Comment Many gram positive rods. GRAM STAIN RES 3 Final Comment Many gram positive cocci. GRAM STAIN RES 4 Final Comment No white blood cells seen. Performed at: [address], [place], [place] [id number] Major Account Manager: SUMMER Campos MD, Phone: [phone] END OF REPORT Objective: Assessment: 1. Superimposed cellulitis with h/o underlying Chronic venous stasis and lymphedema 2. Chronic venous stasis and lymphedema with elephantiasis, and cobblestoning like nodules, extensive with superficial ulceration and weeping lesions from chronic venous stasis below the knees bilaterally. 3. Vascular insufficiency. 4. Diabetes mellitus. 5. Anemia. 6. Bipolar disorder. 7. Depression. 8. Hypertension. 9. Hyperlipidemia. 10. Obesity. Plan: Plan of Care Continue Zosyn/ Zyvox/micafungin. Follow up cultures and labs. Continue wound management per wound team. Elevate leg. Optimal edema control. Optimal diabetes control. ULISES SCHAEFER MD Apr 11, 2019 08:57
[2019-04-11] MEDS: LINEZOLID 600 MG TABLET PO SCH ×2 (09:02→21:05)
[2019-04-11] MEDS: LACTOBACILLUS RHAMNOSUS GG 1 CAPSULE. PO SCH ×2 (09:02→21:05)
--- NOTE | 2019-04-11 09:17 | PDOC ---
PROGRESS NOTES Chief Complaint Chief Complaint Past Medical History Past Medical History Past Medical History: Anemia, Bipolar, Depression, Diabetes-Type II, Vascular Disease, Other Additional Past Medical Histor: VENOUS INSUFFICIENCY, LYMPHADEMA, CATARACTS Past Surgical History: No Surgical History Alcohol Use: None Drug Use: None History of Present Illness History of Present Illness ASSESSMENT AND PLAN: Severe lower extremity cellulitis and open wounds, vascular insufficiency diabetes. Cutaneous lesions diffusely could be neurofibromatosis. lymphedema with elephantiasis, severe protein-caloric malnutrition admitted. intravenous antibiotics, consult Wound Care; home medications; deep vein thrombosis prophylaxis; full code; id consult Prognosis long-term is guarded. may need transfer to [facility] 39 min pt exam, chart review, > 50% of time spent with exam, chart review, pt care coordination Vitals Vitals Vital Signs Date Time Temp Pulse Resp B/P (MAP) Pulse Ox O2 Delivery O2 Flow Rate FiO2 04/11/19 08:00 Room Air 04/11/19 07:00 98.4 74 16 114/54 (74) 99 98.4 Physical Exam Physical Exam GENERAL: Alert and oriented x 3 female, well-developed, well-nourished, obese, sitting in chair, in no acute distress, pleasant, cooperative. HEENT: Normocephalic, atraumatic, anicteric, edentulous. No oral lesions. NECK: Supple, no JVD. LUNGS: Clear bilaterally. No wheezing. HEART: S1, S2. No gallops or murmurs. ABDOMEN: Soft, nontender, obese. Bowel sounds present. EXTREMITIES: Both lower extremity wounds are dressed. 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 NEUROLOGIC: Alert and oriented x 3, grossly nonfocal. PSYCHIATRIC: Cooperative, appropriate mood and affect. DERMATOLOGIC: Warm and dry. No generalized rash except for above. General: Alert, Oriented X3, Cooperative, No acute distress, mild distress Lungs: Clear Abdomen: Soft, No tenderness Extremities: No cyanosis Labs LABS SPEC #: [id number] CONNIE: 04/08/19-2009 STATUS: RES REQ #: [id number] RECD: 04/08/[address]: YURIDIA BEAULIEU APRN SOURCE: FOOT ENTR: 04/08/[address]: IBIS KEYS MD [facility]: WOUND ORDERED: ANAER/AEROB/GS COMMENTS: LEFT FOOT WOUND Procedure Result ANAEROBIC-AEROBIC CULTURE PENDING ANAEROBIC RES 1 PENDING AEROBIC CULT PENDING AEROBIC RES 1 PENDING GRAM STAIN Final Final report GRAM STAIN RES 1 Final Comment Many gram negative rods. GRAM STAIN RES 2 Final Comment Many gram positive rods. GRAM STAIN RES 3 Final Comment Many gram positive cocci. GRAM STAIN RES 4 Final Comment No white blood cells seen. Performed at: - [facility], [place], [place] [id number] Percussion Tuner: SUMMER Campos MD, Phone: [phone] Laboratory Tests Test 04/10/19 10:56 04/10/19 14:00 04/10/19 16:24 04/10/19 20:57 Glucose (Fingerstick) 136 mg/dL (70-99) 127 mg/dL (70-99) 157 mg/dL (70-99) White Blood Count 10.6 x10^3/uL (4.0-11.0) Red Blood Count 4.24 x10^6/uL (3.50-5.40) Hemoglobin 10.4 g/dL (12.0-15.5) Hematocrit 31.9 % (36.0-47.0) Mean Corpuscular Volume 75 fL (79-100) Mean Corpuscular Hemoglobin 25 pg (25-35) Mean Corpuscular Hemoglobin Concent 33 g/dL (31-37) Red Cell Distribution Width 18.3 % (11.5-14.5) Platelet Count 498 x10^3/uL (140-400) Neutrophils (%) (Auto) 76 % (31-73) Lymphocytes (%) (Auto) 14 % (24-48) Monocytes (%) (Auto) 8 % (0-9) Eosinophils (%) (Auto) 2 % (0-3) Basophils (%) (Auto) 1 % (0-3) Neutrophils # (Auto) 8.0 x10^3/uL (1.8-7.7) Lymphocytes # (Auto) 1.5 x10^3/uL (1.0-4.8) Monocytes # (Auto) 0.8 x10^3/uL (0.0-1.1) Eosinophils # (Auto) 0.2 x10^3/uL (0.0-0.7) Basophils # (Auto) 0.1 x10^3/uL (0.0-0.2) Sodium Level 139 mmol/L (136-145) Potassium Level 3.9 mmol/L (3.5-5.1) Chloride Level 104 mmol/L (98-107) Carbon Dioxide Level 29 mmol/L (21-32) Anion Gap 6 (6-14) Blood Urea Nitrogen 14 mg/dL (7-20) Creatinine 0.9 mg/dL (0.6-1.0) Estimated GFR (Cockcroft-Gault) 74.1 Glucose Level 137 mg/dL (70-99) Calcium Level 9.0 mg/dL (8.5-10.1) Vancomycin Level Trough 20.4 mcg/mL (10.0-20.0) Vancomycin Last Dose Date 04/10/19 Vancomycin Last Dose Time 0200 Test 04/11/19 04:35 04/11/19 07:55 White Blood Count 10.9 x10^3/uL (4.0-11.0) Red Blood Count 4.22 x10^6/uL (3.50-5.40) Hemoglobin 10.4 g/dL (12.0-15.5) Hematocrit 31.8 % (36.0-47.0) Mean Corpuscular Volume 75 fL (79-100) Mean Corpuscular Hemoglobin 25 pg (25-35) Mean Corpuscular Hemoglobin Concent 33 g/dL (31-37) Red Cell Distribution Width 18.2 % (11.5-14.5) Platelet Count 500 x10^3/uL (140-400) Neutrophils (%) (Auto) 73 % (31-73) Lymphocytes (%) (Auto) 18 % (24-48) Monocytes (%) (Auto) 6 % (0-9) Eosinophils (%) (Auto) 2 % (0-3) Basophils (%) (Auto) 1 % (0-3) Neutrophils # (Auto) 8.0 x10^3/uL (1.8-7.7) Lymphocytes # (Auto) 2.0 x10^3/uL (1.0-4.8) Monocytes # (Auto) 0.7 x10^3/uL (0.0-1.1) Eosinophils # (Auto) 0.3 x10^3/uL (0.0-0.7) Basophils # (Auto) 0.1 x10^3/uL (0.0-0.2) Sodium Level 138 mmol/L (136-145) Potassium Level 4.0 mmol/L (3.5-5.1) Chloride Level 103 mmol/L (98-107) Carbon Dioxide Level 24 mmol/L (21-32) Anion Gap 11 (6-14) Blood Urea Nitrogen 14 mg/dL (7-20) Creatinine 0.8 mg/dL (0.6-1.0) Estimated GFR (Cockcroft-Gault) 84.8 BUN/Creatinine Ratio 18 (6-20) Glucose Level 142 mg/dL (70-99) Calcium Level 9.1 mg/dL (8.5-10.1) Total Bilirubin 0.2 mg/dL (0.2-1.0) Aspartate Amino Transf (AST/SGOT) 12 U/L (15-37) Alanine Aminotransferase (ALT/SGPT) 6 U/L (14-59) Alkaline Phosphatase 75 U/L (46-116) Total Protein 7.8 g/dL (6.4-8.2) Albumin 2.2 g/dL (3.4-5.0) Albumin/Globulin Ratio 0.4 (1.0-1.7) Glucose (Fingerstick) 124 mg/dL (70-99) Assessment and Plan Assessmemt and Plan Problems Medical Problems: (1) Bilateral lower leg cellulitis Status: Acute Comment Review of Relevant I have reviewed the following items mariela (where applicable) has been applied. Labs Laboratory Tests Test 04/09/19 11:04 04/09/19 16:39 04/09/19 20:36 04/10/19 07:36 Glucose (Fingerstick) 162 mg/dL (70-99) 116 mg/dL (70-99) 156 mg/dL (70-99) 95 mg/dL (70-99) Test 04/10/19 10:56 04/10/19 14:00 04/10/19 16:24 04/10/19 20:57 Glucose (Fingerstick) 136 mg/dL (70-99) 127 mg/dL (70-99) 157 mg/dL (70-99) White Blood Count 10.6 x10^3/uL (4.0-11.0) Red Blood Count 4.24 x10^6/uL (3.50-5.40) Hemoglobin 10.4 g/dL (12.0-15.5) Hematocrit 31.9 % (36.0-47.0) Mean Corpuscular Volume 75 fL (79-100) Mean Corpuscular Hemoglobin 25 pg (25-35) Mean Corpuscular Hemoglobin Concent 33 g/dL (31-37) Red Cell Distribution Width 18.3 % (11.5-14.5) Platelet Count 498 x10^3/uL (140-400) Neutrophils (%) (Auto) 76 % (31-73) Lymphocytes (%) (Auto) 14 % (24-48) Monocytes (%) (Auto) 8 % (0-9) Eosinophils (%) (Auto) 2 % (0-3) Basophils (%) (Auto) 1 % (0-3) Neutrophils # (Auto) 8.0 x10^3/uL (1.8-7.7) Lymphocytes # (Auto) 1.5 x10^3/uL (1.0-4.8) Monocytes # (Auto) 0.8 x10^3/uL (0.0-1.1) Eosinophils # (Auto) 0.2 x10^3/uL (0.0-0.7) Basophils # (Auto) 0.1 x10^3/uL (0.0-0.2) Sodium Level 139 mmol/L (136-145) Potassium Level 3.9 mmol/L (3.5-5.1) Chloride Level 104 mmol/L (98-107) Carbon Dioxide Level 29 mmol/L (21-32) Anion Gap 6 (6-14) Blood Urea Nitrogen 14 mg/dL (7-20) Creatinine 0.9 mg/dL (0.6-1.0) Estimated GFR (Cockcroft-Gault) 74.1 Glucose Level 137 mg/dL (70-99) Calcium Level 9.0 mg/dL (8.5-10.1) Vancomycin Level Trough 20.4 mcg/mL (10.0-20.0) Vancomycin Last Dose Date 04/10/19 Vancomycin Last Dose Time 0200 Test 04/11/19 04:35 04/11/19 07:55 White Blood Count 10.9 x10^3/uL (4.0-11.0) Red Blood Count 4.22 x10^6/uL (3.50-5.40) Hemoglobin 10.4 g/dL (12.0-15.5) Hematocrit 31.8 % (36.0-47.0) Mean Corpuscular Volume 75 fL (79-100) Mean Corpuscular Hemoglobin 25 pg (25-35) Mean Corpuscular Hemoglobin Concent 33 g/dL (31-37) Red Cell Distribution Width 18.2 % (11.5-14.5) Platelet Count 500 x10^3/uL (140-400) Neutrophils (%) (Auto) 73 % (31-73) Lymphocytes (%) (Auto) 18 % (24-48) Monocytes (%) (Auto) 6 % (0-9) Eosinophils (%) (Auto) 2 % (0-3) Basophils (%) (Auto) 1 % (0-3) Neutrophils # (Auto) 8.0 x10^3/uL (1.8-7.7) Lymphocytes # (Auto) 2.0 x10^3/uL (1.0-4.8) Monocytes # (Auto) 0.7 x10^3/uL (0.0-1.1) Eosinophils # (Auto) 0.3 x10^3/uL (0.0-0.7) Basophils # (Auto) 0.1 x10^3/uL (0.0-0.2) Sodium Level 138 mmol/L (136-145) Potassium Level 4.0 mmol/L (3.5-5.1) Chloride Level 103 mmol/L (98-107) Carbon Dioxide Level 24 mmol/L (21-32) Anion Gap 11 (6-14) Blood Urea Nitrogen 14 mg/dL (7-20) Creatinine 0.8 mg/dL (0.6-1.0) Estimated GFR (Cockcroft-Gault) 84.8 BUN/Creatinine Ratio 18 (6-20) Glucose Level 142 mg/dL (70-99) Calcium Level 9.1 mg/dL (8.5-10.1) Total Bilirubin 0.2 mg/dL (0.2-1.0) Aspartate Amino Transf (AST/SGOT) 12 U/L (15-37) Alanine Aminotransferase (ALT/SGPT) 6 U/L (14-59) Alkaline Phosphatase 75 U/L (46-116) Total Protein 7.8 g/dL (6.4-8.2) Albumin 2.2 g/dL (3.4-5.0) Albumin/Globulin Ratio 0.4 (1.0-1.7) Glucose (Fingerstick) 124 mg/dL (70-99) Laboratory Tests Test 04/10/19 10:56 04/10/19 14:00 04/10/19 16:24 04/10/19 20:57 Glucose (Fingerstick) 136 mg/dL (70-99) 127 mg/dL (70-99) 157 mg/dL (70-99) White Blood Count 10.6 x10^3/uL (4.0-11.0) Red Blood Count 4.24 x10^6/uL (3.50-5.40) Hemoglobin 10.4 g/dL (12.0-15.5) Hematocrit 31.9 % (36.0-47.0) Mean Corpuscular Volume 75 fL (79-100) Mean Corpuscular Hemoglobin 25 pg (25-35) Mean Corpuscular Hemoglobin Concent 33 g/dL (31-37) Red Cell Distribution Width 18.3 % (11.5-14.5) Platelet Count 498 x10^3/uL (140-400) Neutrophils (%) (Auto) 76 % (31-73) Lymphocytes (%) (Auto) 14 % (24-48) Monocytes (%) (Auto) 8 % (0-9) Eosinophils (%) (Auto) 2 % (0-3) Basophils (%) (Auto) 1 % (0-3) Neutrophils # (Auto) 8.0 x10^3/uL (1.8-7.7) Lymphocytes # (Auto) 1.5 x10^3/uL (1.0-4.8) Monocytes # (Auto) 0.8 x10^3/uL (0.0-1.1) Eosinophils # (Auto) 0.2 x10^3/uL (0.0-0.7) Basophils # (Auto) 0.1 x10^3/uL (0.0-0.2) Sodium Level 139 mmol/L (136-145) Potassium Level 3.9 mmol/L (3.5-5.1) Chloride Level 104 mmol/L (98-107) Carbon Dioxide Level 29 mmol/L (21-32) Anion Gap 6 (6-14) Blood Urea Nitrogen 14 mg/dL (7-20) Creatinine 0.9 mg/dL (0.6-1.0) Estimated GFR (Cockcroft-Gault) 74.1 Glucose Level 137 mg/dL (70-99) Calcium Level 9.0 mg/dL (8.5-10.1) Vancomycin Level Trough 20.4 mcg/mL (10.0-20.0) Vancomycin Last Dose Date 04/10/19 Vancomycin Last Dose Time 0200 Test 04/11/19 04:35 04/11/19 07:55 White Blood Count 10.9 x10^3/uL (4.0-11.0) Red Blood Count 4.22 x10^6/uL (3.50-5.40) Hemoglobin 10.4 g/dL (12.0-15.5) Hematocrit 31.8 % (36.0-47.0) Mean Corpuscular Volume 75 fL (79-100) Mean Corpuscular Hemoglobin 25 pg (25-35) Mean Corpuscular Hemoglobin Concent 33 g/dL (31-37) Red Cell Distribution Width 18.2 % (11.5-14.5) Platelet Count 500 x10^3/uL (140-400) Neutrophils (%) (Auto) 73 % (31-73) Lymphocytes (%) (Auto) 18 % (24-48) Monocytes (%) (Auto) 6 % (0-9) Eosinophils (%) (Auto) 2 % (0-3) Basophils (%) (Auto) 1 % (0-3) Neutrophils # (Auto) 8.0 x10^3/uL (1.8-7.7) Lymphocytes # (Auto) 2.0 x10^3/uL (1.0-4.8) Monocytes # (Auto) 0.7 x10^3/uL (0.0-1.1) Eosinophils # (Auto) 0.3 x10^3/uL (0.0-0.7) Basophils # (Auto) 0.1 x10^3/uL (0.0-0.2) Sodium Level 138 mmol/L (136-145) Potassium Level 4.0 mmol/L (3.5-5.1) Chloride Level 103 mmol/L (98-107) Carbon Dioxide Level 24 mmol/L (21-32) Anion Gap 11 (6-14) Blood Urea Nitrogen 14 mg/dL (7-20) Creatinine 0.8 mg/dL (0.6-1.0) Estimated GFR (Cockcroft-Gault) 84.8 BUN/Creatinine Ratio 18 (6-20) Glucose Level 142 mg/dL (70-99) Calcium Level 9.1 mg/dL (8.5-10.1) Total Bilirubin 0.2 mg/dL (0.2-1.0) Aspartate Amino Transf (AST/SGOT) 12 U/L (15-37) Alanine Aminotransferase (ALT/SGPT) 6 U/L (14-59) Alkaline Phosphatase 75 U/L (46-116) Total Protein 7.8 g/dL (6.4-8.2) Albumin 2.2 g/dL (3.4-5.0) Albumin/Globulin Ratio 0.4 (1.0-1.7) Glucose (Fingerstick) 124 mg/dL (70-99) Microbiology 04/08/19 Anaerobic/Aerobic Culture, Resulted Pending 04/08/19 Anaerobic Culture Result 1 (DANIKA), Resulted Pending 04/08/19 Aerobic Culture, Resulted Pending 04/08/19 Aerobic Culture Result 1 (DANIKA), Resulted Pending 04/08/19 Gram Stain - Final, Resulted 04/08/19 Gram Stain Result 1 (DANIKA) - Final, Resulted 04/08/19 Gram Stain Result 2 (DANIKA) - Final, Resulted 04/08/19 Gram Stain Result 3 (DANIKA) - Final, Resulted 04/08/19 Gram Stain Result 4 (DANIKA) - Final, Resulted Medications Current Medications Vancomycin HCl (Vanco Per Pharmacy) 1 each PRN DAILY PRN MC SEE COMMENTS Last administered on 04/10/19at 14:53; Start 04/08/19 at 21:30; Stop 04/10/19 at 15:49; Status DC Piperacillin Sod/ Tazobactam Sod (Zosyn Per Pharmacy) 1 each PRN DAILY PRN MC SEE COMMENTS; Start 04/08/19 at 21:30 Piperacillin Sod/ Tazobactam Sod 3.375 gm/Sodium Chloride 50 ml @ 100 mls/hr 1X ONCE IV Last administered on 04/08/19at 21:50; Start 04/08/19 at 21:45; Stop 04/08/19 at 22:14; Status DC Vancomycin HCl 2 gm/Sodium Chloride 500 ml @ 250 mls/hr 1X ONCE IV Last administered on 04/09/19at 02:04; Start 04/08/19 at 23:30; Stop 04/09/19 at 01:30; Status DC Piperacillin Sod/ Tazobactam Sod 3.375 gm/Sodium Chloride 50 ml @ 100 mls/hr Q6HRS IV Last administered on 04/11/19at 06:01; Start 12/31/19 at 06:00 Vancomycin HCl 1.5 gm/Sodium Chloride 500 ml @ 250 mls/hr Q12H IV Last administered on 04/10/19at 02:40; Start 04/09/19 at 14:00; Stop 04/10/19 at 14:52; Status DC Vancomycin HCl (Vancomycin Trough Level) 1 each 1X ONCE MC Last administered on 04/10/19at 13:30; Start 04/10/19 at 13:30; Stop 04/10/19 at 13:31; Status DC Lactobacillus Rhamnosus (Culturelle) 1 cap BID PO Last administered on 04/11/19at 09:02; Start 04/09/19 at 21:00 Sodium Chloride (Normal Saline Flush) 3 ml QSHIFT PRN IV AFTER MEDS AND BLOOD DRAWS; Start 04/10/19 at 14:45 Sodium Chloride 1,000 ml @ 60 mls/hr [id number] IV Last administered on 04/11/19at 06:02; Start 04/10/19 at 14:39 Ondansetron HCl (Zofran) 4 mg PRN Q4HRS PRN IV NAUSEA/VOMITING; Start 04/10/19 at 14:45 Acetaminophen (Tylenol) 650 mg PRN Q4HRS PRN PO TEMP OVER 100.4F OR MILD PAIN; Start 04/10/19 at 14:45 Al Hydroxide/Mg Hydroxide (Mylanta Plus Xs) 30 ml PRN DAILY PRN PO HEARTBURN / GAS; Start 04/10/19 at 14:45 Clonidine HCl (Catapres) 0.1 mg PRN Q6HRS PRN PO SBP>160 OR DBP>90; Start 04/10/19 at 14:45 Docusate Sodium (Colace) 100 mg PRN BID PRN PO CONSTIPATION; Start 04/10/19 at 14:45 Albuterol Sulfate (Ventolin Neb Soln) 2.5 mg PRN Q4HRS PRN NEB SHORTNESS OF BREATH; Start 04/10/19 at 14:45 Guaifenesin (Robitussin) 200 mg PRN Q4HRS PRN PO COUGH; Start 04/10/19 at 14:45 Lorazepam (Ativan) 0.5 mg PRN Q4HRS PRN PO ANXIETY / AGITATION; Start 04/10/19 at 14:45 Vancomycin HCl 1.5 gm/Sodium Chloride 500 ml @ 250 mls/hr Q18H IV ; Start 04/10/19 at 17:00; Stop 04/10/19 at 15:48; Status DC Linezolid (Zyvox) 600 mg BID PO Last administered on 04/11/19at 09:02; Start 04/10/19 at 21:00 Micafungin Sodium 100 mg/Dextrose 100 ml @ 100 mls/hr Q24H IV Last administered on 04/11/19at 01:53; Start 04/10/19 at 16:00 Active Scripts Active Reported Spironolactone 25 Mg Tablet 1 Tab PO DAILY Risperidone 2 Mg Tablet 2 Mg PO DAILY Metformin Hcl 1,000 Mg Tablet 1,000 Mg PO [id number] Metformin Hcl 500 Mg Tablet 500 Mg PO QEVNG Furosemide 20 Mg Tablet 20 Mg PO DAILY Ergocalciferol (Ergocalciferol (Vitamin D2)) 8,000 Unit/1 Ml Drops 50,000 Unit PO WEEKLY B-12 (Cyanocobalamin (Vitamin B-12)) 500 Mcg Tablet 1 Tab PO DAILY 30 Days Atorvastatin Calcium 80 Mg Tablet 10 Mg PO QHS Aspirin 81 Mg Tab.chew 1 Tab PO DAILY Vitals/I & O Vital Sign - Last 24 Hours 04/10/19 04/10/19 04/10/19 04/10/19 09:28 11:00 15:00 19:00 Temp 98.2 98.4 98.9 98.2 98.4 98.9 Pulse 69 67 72 Resp 20 20 20 B/P (MAP) 116/54 (74) 95/47 (63) 112/51 (71) Pulse Ox 100 99 94 O2 Delivery Room Air Room Air Room Air Room Air 04/10/19 04/10/19 04/11/19 04/11/19 19:35 23:00 03:00 07:00 Temp 98.4 98.5 98.4 98.4 98.5 98.4 Pulse 70 67 74 Resp 18 18 16 B/P (MAP) 122/58 (79) 118/68 (85) 114/54 (74) Pulse Ox 96 97 99 O2 Delivery Room Air Room Air Room Air Room Air 04/11/19 08:00 O2 Delivery Room Air Intake and Output 04/10/19 04/10/19 04/11/19 15:00 23:00 07:00 Intake Total 50 ml 120 ml Balance 50 ml 120 ml TYLER WHITE MD Apr 11, 2019 09:17
[2019-04-11 11:00] VITALS: BP 108/67
[2019-04-11 15:00] VITALS: BP 121/53
--- NOTE | 2019-04-11 16:06 | NUR ---
SW following. Discussed with RN, pt is from [facility]. SW faxed updates with SNU recommendation. SW will continue to follow. RN notified.
[2019-04-11 19:30] VITALS: BP 122/65
--- NOTE | 2019-04-11 20:00 | NUR ---
Patient's IV in left forearm has infiltrated. Patient not wanting IV to be restarted at this time. will continue to monitor.
[2019-04-11 23:18] VITALS: BP 124/63
[2019-04-12] MEDS: PIPERACILLIN/TAZOBACTAM 3.375 GM in IV NORMAL SALINE 50ML 50 ML IV SCH ×5 (00:12→23:58)
[2019-04-12 03:45] VITALS: BP 131/81
[2019-04-12 07:00] VITALS: BP 126/73
--- NOTE | 2019-04-12 09:12 | PDOC ---
Infectious Disease Note Subjective: Subjective pt says feels better still has draining wounds no other complaints Vital Signs: Vital Signs Vital Signs Date Time Temp Pulse Resp B/P (MAP) Pulse Ox O2 Delivery O2 Flow Rate FiO2 04/12/19 07:38 Room Air 04/12/19 07:00 97.5 64 16 126/73 (90) 98 97.5 Physical Exam: PHYSICAL EXAM GENERAL: Alert and oriented x 3 female, well-developed, well-nourished, obese, sitting in chair, in no acute distress, pleasant, cooperative. HEENT: Normocephalic, atraumatic, anicteric, edentulous. No oral lesions. NECK: Supple, no JVD. LUNGS: Clear bilaterally. No wheezing. HEART: S1, S2. No gallops or murmurs. ABDOMEN: Soft, nontender, obese. Bowel sounds present. EXTREMITIES: Both lower extremity wounds are dressed. 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 NEUROLOGIC: Alert and oriented x 3, grossly nonfocal. PSYCHIATRIC: Cooperative, appropriate mood and affect. DERMATOLOGIC: Warm and dry. No generalized rash except for above. Medications: Inpatient Meds: Current Medications Medications (Trade) Dose Ordered Sig/Curly Start Time Stop Time Status Last Admin Dose Admin Acetaminophen (Tylenol) 650 mg PRN Q4HRS PRN 04/10/19 14:45 Al Hydroxide/Mg Hydroxide (Mylanta Plus Xs) 30 ml PRN DAILY PRN 04/10/19 14:45 Albuterol Sulfate (Ventolin Neb Soln) 2.5 mg PRN Q4HRS PRN 04/10/19 14:45 Ascorbic Acid (Vitamin C) 500 mg DAILY 04/12/19 09:00 Clonidine HCl (Catapres) 0.1 mg PRN Q6HRS PRN 04/10/19 14:45 Docusate Sodium (Colace) 100 mg PRN BID PRN 04/10/19 14:45 Guaifenesin (Robitussin) 200 mg PRN Q4HRS PRN 04/10/19 14:45 Lactobacillus Rhamnosus (Culturelle) 1 cap BID 04/09/19 21:00 04/11/19 21:05 1 CAP Linezolid (Zyvox) 600 mg BID 04/10/19 21:00 04/11/19 21:05 600 MG Lorazepam (Ativan) 0.5 mg PRN Q4HRS PRN 04/10/19 14:45 Micafungin Sodium 100 mg/Dextrose 100 ml @ 100 mls/hr Q24H 04/10/19 16:00 04/11/19 14:59 100 MLS/HR Multivitamins (Thera M Plus) 1 tab DAILY 04/12/19 09:00 Ondansetron HCl (Zofran) 4 mg PRN Q4HRS PRN 04/10/19 14:45 Piperacillin Sod/ Tazobactam Sod (Zosyn Per Pharmacy) 1 each PRN DAILY PRN 04/08/19 21:30 Piperacillin Sod/ Tazobactam Sod 3.375 gm/Sodium Chloride 50 ml @ 100 mls/hr Q6HRS 04/09/19 06:00 04/12/19 05:44 100 MLS/HR Sodium Chloride 1,000 ml @ 60 mls/hr [id number] 04/10/19 14:39 04/11/19 06:02 60 MLS/HR Sodium Chloride (Normal Saline Flush) 3 ml QSHIFT PRN 04/10/19 14:45 Vancomycin HCl (Vanco Per Pharmacy) 1 each PRN DAILY PRN 04/08/19 21:30 04/10/19 15:49 DC 04/10/19 14:53 1 EACH Vancomycin HCl (Vancomycin Trough Level) 1 each 1X ONCE 04/10/19 13:30 04/10/19 13:31 DC 04/10/19 13:30 1 EACH Vancomycin HCl 1.5 gm/Sodium Chloride 500 ml @ 250 mls/hr Q18H 04/10/19 17:00 04/10/19 15:48 DC Vancomycin HCl 2 gm/Sodium Chloride 500 ml @ 250 mls/hr 1X ONCE 04/08/19 23:30 04/09/19 01:30 DC 04/09/19 02:04 250 MLS/HR Labs: Lab Laboratory Tests Test 04/11/19 11:20 04/11/19 17:00 04/11/19 21:15 04/12/19 07:35 Glucose (Fingerstick) 131 mg/dL (70-99) 171 mg/dL (70-99) 149 mg/dL (70-99) 117 mg/dL (70-99) Micro RUN DATE: 04/11/19 [facility] *LIVE* PAGE 1 RUN TIME: 1610 Specimen Inquiry PATIENT: NANCY ALVARADOGary Briones ACCT: [id number] LOC: [address] [place] [address] U: [id number] AGE/SX: 73/F ROOM: [facility] RE04/08/[address]: SAL TRENT III, DO : 1945 BED: 1 DIS: STATUS: ADM IN TLOC: SPEC #: [id number] CONNIE: 04/08/19 STATUS: RES REQ #: [id number] RECD: 04/08/[address]: YURIDIA BEAULIEU APRN SOURCE: FOOT ENTR: 04/08/[address]: IBIS KEYS MD [facility]: WOUND ORDERED: ANAER/AEROB/GS COMMENTS: LEFT FOOT WOUND Procedure Result ANAEROBIC-AEROBIC CULTURE PENDING ANAEROBIC RES 1 PENDING AEROBIC CULT Preliminary Preliminary report AEROBIC RES 1 Preliminary Comment Mixed skin susannah including multiple gram negative rods. 4+ GRAM STAIN Final Final report GRAM STAIN RES 1 Final Comment Many gram negative rods. GRAM STAIN RES 2 Final Comment Many gram positive rods. GRAM STAIN RES 3 Final Comment Many gram positive cocci. GRAM STAIN RES 4 Final Comment No white blood cells seen. Performed at: [facility], [place], [place] [id number] [employer]rrigation Installation Specialist: SUMMER Campos MD, Phone: [phone] Objective: Assessment: 1. Superimposed cellulitis with h/o underlying Chronic venous stasis and lymphedema 2. Chronic venous stasis and lymphedema with elephantiasis, and cobblestoning like nodules, extensive with superficial ulceration and weeping lesions from chronic venous stasis below the knees bilaterally. 3. Vascular insufficiency. 4. Diabetes mellitus. 5. Anemia. 6. Bipolar disorder. 7. Depression. 8. Hypertension. 9. Hyperlipidemia. 10. Obesity. Plan: Plan of Care Continue Zosyn/ Zyvox/micafungin. Follow up cultures and labs. Continue wound management per wound team. Elevate leg. Optimal edema control. Optimal diabetes control. ULISES SCHAEFER MD Apr 12, 2019 09:12
[2019-04-12] MEDS: MULTIVITAMIN with MINERAL TABLET. PO SCH (09:29)
[2019-04-12] MEDS: ASCORBIC ACID 500 MG TABLET PO SCH (09:29)
[2019-04-12] MEDS: LACTOBACILLUS RHAMNOSUS GG 1 CAPSULE. PO SCH ×2 (09:29→21:05)
[2019-04-12] MEDS: LINEZOLID 600 MG TABLET PO SCH ×2 (09:29→21:05)
--- NOTE | 2019-04-12 10:33 | NUR ---
SW following. Discussed with RN, pt's legs weeping a lot today. Waiting on cultures. Plan is to return to [place].
[2019-04-12 11:00] VITALS: BP 129/62
--- NOTE | 2019-04-12 12:10 | PDOC ---
PROGRESS NOTES Chief Complaint Chief Complaint Past Medical History Past Medical History Past Medical History: Anemia, Bipolar, Depression, Diabetes-Type II, Vascular Disease, Other, obesity Additional Past Medical Histor: VENOUS INSUFFICIENCY, LYMPHADEMA, CATARACTS Past Surgical History: No Surgical History Alcohol Use: None Drug Use: None History of Present Illness History of Present Illness ASSESSMENT AND PLAN: Severe lower extremity cellulitis and open wounds, lesions from chronic venous stasis below the knees bilaterally. venous vascular insufficiency diabetes. Cutaneous lesions diffusely could be neurofibromatosis. lymphedema with elephantiasis, severe protein-caloric malnutrition admitted. intravenous antibiotics, consult Wound Care; home medications; deep vein thrombosis prophylaxis; full code; id consult Prognosis long-term is guarded. may need transfer to [facility] 29 min pt exam, chart review, > 50% of time spent with exam, chart review, pt care coordination Vitals Vitals Vital Signs Date Time Temp Pulse Resp B/P (MAP) Pulse Ox O2 Delivery O2 Flow Rate FiO2 04/12/19 07:38 Room Air 04/12/19 07:00 97.5 64 16 126/73 (90) 98 97.5 Physical Exam Physical Exam GENERAL: Alert and oriented x 3 female, well-developed, well-nourished, obese, sitting in chair, in no acute distress, pleasant, cooperative. HEENT: Normocephalic, atraumatic, anicteric, edentulous. No oral lesions. NECK: Supple, no JVD. LUNGS: Clear bilaterally. No wheezing. HEART: S1, S2. No gallops or murmurs. ABDOMEN: Soft, nontender, obese. Bowel sounds present. EXTREMITIES: Both lower extremity wounds are dressed. 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 NEUROLOGIC: Alert and oriented x 3, grossly nonfocal. PSYCHIATRIC: Cooperative, appropriate mood and affect. DERMATOLOGIC: Warm and dry. No generalized rash except for above. General: Alert, Oriented X3, Cooperative, No acute distress Heart: Regular rate Lungs: Clear Abdomen: Normal bowel sounds, Soft, No tenderness Extremities: No cyanosis Labs LABS Laboratory Tests Test 04/11/19 17:00 04/11/19 21:15 04/12/19 07:35 Glucose (Fingerstick) 171 mg/dL (70-99) 149 mg/dL (70-99) 117 mg/dL (70-99) Assessment and Plan Assessmemt and Plan Problems Medical Problems: (1) Bilateral lower leg cellulitis Status: Acute Comment Review of Relevant I have reviewed the following items mariela (where applicable) has been applied. Labs Laboratory Tests Test 04/10/19 14:00 04/10/19 16:24 04/10/19 20:57 04/11/19 04:35 White Blood Count 10.6 x10^3/uL (4.0-11.0) 10.9 x10^3/uL (4.0-11.0) Red Blood Count 4.24 x10^6/uL (3.50-5.40) 4.22 x10^6/uL (3.50-5.40) Hemoglobin 10.4 g/dL (12.0-15.5) 10.4 g/dL (12.0-15.5) Hematocrit 31.9 % (36.0-47.0) 31.8 % (36.0-47.0) Mean Corpuscular Volume 75 fL (79-100) 75 fL (79-100) Mean Corpuscular Hemoglobin 25 pg (25-35) 25 pg (25-35) Mean Corpuscular Hemoglobin Concent 33 g/dL (31-37) 33 g/dL (31-37) Red Cell Distribution Width 18.3 % (11.5-14.5) 18.2 % (11.5-14.5) Platelet Count 498 x10^3/uL (140-400) 500 x10^3/uL (140-400) Neutrophils (%) (Auto) 76 % (31-73) 73 % (31-73) Lymphocytes (%) (Auto) 14 % (24-48) 18 % (24-48) Monocytes (%) (Auto) 8 % (0-9) 6 % (0-9) Eosinophils (%) (Auto) 2 % (0-3) 2 % (0-3) Basophils (%) (Auto) 1 % (0-3) 1 % (0-3) Neutrophils # (Auto) 8.0 x10^3/uL (1.8-7.7) 8.0 x10^3/uL (1.8-7.7) Lymphocytes # (Auto) 1.5 x10^3/uL (1.0-4.8) 2.0 x10^3/uL (1.0-4.8) Monocytes # (Auto) 0.8 x10^3/uL (0.0-1.1) 0.7 x10^3/uL (0.0-1.1) Eosinophils # (Auto) 0.2 x10^3/uL (0.0-0.7) 0.3 x10^3/uL (0.0-0.7) Basophils # (Auto) 0.1 x10^3/uL (0.0-0.2) 0.1 x10^3/uL (0.0-0.2) Sodium Level 139 mmol/L (136-145) 138 mmol/L (136-145) Potassium Level 3.9 mmol/L (3.5-5.1) 4.0 mmol/L (3.5-5.1) Chloride Level 104 mmol/L (98-107) 103 mmol/L (98-107) Carbon Dioxide Level 29 mmol/L (21-32) 24 mmol/L (21-32) Anion Gap 6 (6-14) 11 (6-14) Blood Urea Nitrogen 14 mg/dL (7-20) 14 mg/dL (7-20) Creatinine 0.9 mg/dL (0.6-1.0) 0.8 mg/dL (0.6-1.0) Estimated GFR (Cockcroft-Gault) 74.1 84.8 Glucose Level 137 mg/dL (70-99) 142 mg/dL (70-99) Calcium Level 9.0 mg/dL (8.5-10.1) 9.1 mg/dL (8.5-10.1) Vancomycin Level Trough 20.4 mcg/mL (10.0-20.0) Vancomycin Last Dose Date 04/10/19 Vancomycin Last Dose Time 0200 Glucose (Fingerstick) 127 mg/dL (70-99) 157 mg/dL (70-99) BUN/Creatinine Ratio 18 (6-20) Total Bilirubin 0.2 mg/dL (0.2-1.0) Aspartate Amino Transf (AST/SGOT) 12 U/L (15-37) Alanine Aminotransferase (ALT/SGPT) 6 U/L (14-59) Alkaline Phosphatase 75 U/L (46-116) Total Protein 7.8 g/dL (6.4-8.2) Albumin 2.2 g/dL (3.4-5.0) Albumin/Globulin Ratio 0.4 (1.0-1.7) Test 04/11/19 07:55 04/11/19 11:20 04/11/19 17:00 04/11/19 21:15 Glucose (Fingerstick) 124 mg/dL (70-99) 131 mg/dL (70-99) 171 mg/dL (70-99) 149 mg/dL (70-99) Test 04/12/19 07:35 Glucose (Fingerstick) 117 mg/dL (70-99) Laboratory Tests Test 04/11/19 17:00 04/11/19 21:15 04/12/19 07:35 Glucose (Fingerstick) 171 mg/dL (70-99) 149 mg/dL (70-99) 117 mg/dL (70-99) Microbiology 04/11/19 Blood Culture - Preliminary, Resulted NO GROWTH AFTER 1 DAY 04/08/19 Anaerobic/Aerobic Culture, Resulted Pending 04/08/19 Anaerobic Culture Result 1 (DANIKA), Resulted Pending 04/08/19 Aerobic Culture - Preliminary, Resulted 04/08/19 Aerobic Culture Result 1 (DANIKA) - Preliminary, Resulted 04/08/19 Gram Stain - Final, Resulted 04/08/19 Gram Stain Result 1 (DANIKA) - Final, Resulted 04/08/19 Gram Stain Result 2 (DANIKA) - Final, Resulted 04/08/19 Gram Stain Result 3 (DANIKA) - Final, Resulted 04/08/19 Gram Stain Result 4 (DANIKA) - Final, Resulted Medications Current Medications Vancomycin HCl (Vanco Per Pharmacy) 1 each PRN DAILY PRN MC SEE COMMENTS Last administered on 04/10/19at 14:53; Start 04/08/19 at 21:30; Stop 04/10/19 at 15:49; Status DC Piperacillin Sod/ Tazobactam Sod (Zosyn Per Pharmacy) 1 each PRN DAILY PRN MC SEE COMMENTS; Start 04/08/19 at 21:30 Piperacillin Sod/ Tazobactam Sod 3.375 gm/Sodium Chloride 50 ml @ 100 mls/hr 1X ONCE IV Last administered on 04/08/19at 21:50; Start 04/08/19 at 21:45; Stop 04/08/19 at 22:14; Status DC Vancomycin HCl 2 gm/Sodium Chloride 500 ml @ 250 mls/hr 1X ONCE IV Last administered on 04/09/19at 02:04; Start 04/08/19 at 23:30; Stop 04/09/19 at 01:30; Status DC Piperacillin Sod/ Tazobactam Sod 3.375 gm/Sodium Chloride 50 ml @ 100 mls/hr Q6HRS IV Last administered on 04/12/19at 05:44; Start 04/09/19 at 06:00 Vancomycin HCl 1.5 gm/Sodium Chloride 500 ml @ 250 mls/hr Q12H IV Last administered on 04/10/19at 02:40; Start 04/09/19 at 14:00; Stop 04/10/19 at 14:52; Status DC Vancomycin HCl (Vancomycin Trough Level) 1 each 1X ONCE MC Last administered on 04/10/19at 13:30; Start 04/10/19 at 13:30; Stop 04/10/19 at 13:31; Status DC Lactobacillus Rhamnosus (Culturelle) 1 cap BID PO Last administered on 04/12/19at 09:29; Start 04/09/19 at 21:00 Sodium Chloride (Normal Saline Flush) 3 ml QSHIFT PRN IV AFTER MEDS AND BLOOD DRAWS; Start 04/10/19 at 14:45 Sodium Chloride 1,000 ml @ 60 mls/hr [id number] IV Last administered on 04/11/19at 06:02; Start 04/10/19 at 14:39 Ondansetron HCl (Zofran) 4 mg PRN Q4HRS PRN IV NAUSEA/VOMITING; Start 04/10/19 at 14:45 Acetaminophen (Tylenol) 650 mg PRN Q4HRS PRN PO TEMP OVER 100.4F OR MILD PAIN; Start 04/10/19 at 14:45 Al Hydroxide/Mg Hydroxide (Mylanta Plus Xs) 30 ml PRN DAILY PRN PO HEARTBURN / GAS; Start 04/10/19 at 14:45 Clonidine HCl (Catapres) 0.1 mg PRN Q6HRS PRN PO SBP>160 OR DBP>90; Start 04/10/19 at 14:45 Docusate Sodium (Colace) 100 mg PRN BID PRN PO CONSTIPATION; Start 04/10/19 at 14:45 Albuterol Sulfate (Ventolin Neb Soln) 2.5 mg PRN Q4HRS PRN NEB SHORTNESS OF BREATH; Start 04/10/19 at 14:45 Guaifenesin (Robitussin) 200 mg PRN Q4HRS PRN PO COUGH; Start 04/10/19 at 14:45 Lorazepam (Ativan) 0.5 mg PRN Q4HRS PRN PO ANXIETY / AGITATION; Start 04/10/19 at 14:45 Vancomycin HCl 1.5 gm/Sodium Chloride 500 ml @ 250 mls/hr Q18H IV ; Start 04/10/19 at 17:00; Stop 04/10/19 at 15:48; Status DC Linezolid (Zyvox) 600 mg BID PO Last administered on 04/12/19at 09:29; Start 04/10/19 at 21:00 Micafungin Sodium 100 mg/Dextrose 100 ml @ 100 mls/hr Q24H IV Last administered on 04/11/19at 14:59; Start 04/10/19 at 16:00 Multivitamins (Thera M Plus) 1 tab DAILY PO Last administered on 04/12/19at 09:29; Start 04/12/19 at 09:00 Ascorbic Acid (Vitamin C) 500 mg DAILY PO Last administered on 04/12/19at 09:29; Start 04/12/19 at 09:00 Active Scripts Active Reported Spironolactone 25 Mg Tablet 1 Tab PO DAILY Risperidone 2 Mg Tablet 2 Mg PO DAILY Metformin Hcl 1,000 Mg Tablet 1,000 Mg PO [id number] Metformin Hcl 500 Mg Tablet 500 Mg PO QEVNG Furosemide 20 Mg Tablet 20 Mg PO DAILY Ergocalciferol (Ergocalciferol (Vitamin D2)) 8,000 Unit/1 Ml Drops 50,000 Unit PO WEEKLY B-12 (Cyanocobalamin (Vitamin B-12)) 500 Mcg Tablet 1 Tab PO DAILY 30 Days Atorvastatin Calcium 80 Mg Tablet 10 Mg PO QHS Aspirin 81 Mg Tab.chew 1 Tab PO DAILY Vitals/I & O Vital Sign - Last 24 Hours 04/11/19 04/11/19 04/11/19 04/11/19 15:00 19:30 20:00 23:18 Temp 97.7 98.1 98.3 97.7 98.1 98.3 Pulse 82 74 74 Resp 18 18 18 B/P (MAP) 121/53 (75) 122/65 (84) 124/63 (83) Pulse Ox 100 75 96 O2 Delivery Room Air Room Air Room Air Room Air 04/12/19 04/12/19 04/12/19 03:45 07:00 07:38 Temp 98.4 97.5 98.4 97.5 Pulse 68 64 Resp 18 16 B/P (MAP) 131/81 (98) 126/73 (90) Pulse Ox 99 98 O2 Delivery Room Air Room Air Room Air Intake and Output 04/11/19 04/11/19 04/12/19 15:00 23:00 07:00 Intake Total 240 ml 1320 ml Balance 240 ml 1320 ml TYLER WHITE MD Apr 12, 2019 12:10
[2019-04-12] MEDS: IV NORMAL SALINE 1000ML BAG 1,000 ML IV SCH (12:17)
[2019-04-12 15:00] VITALS: BP 128/65
[2019-04-12] MEDS: MICAFUNGIN 100 MG in IV DEXTROSE 5% 100ML 100 ML IV SCH (16:20)
[2019-04-12 19:25] VITALS: BP 176/56
[2019-04-12 23:14] VITALS: BP 147/65
[2019-04-13 02:57] VITALS: BP 140/66
[2019-04-13] MEDS: PIPERACILLIN/TAZOBACTAM 3.375 GM in IV NORMAL SALINE 50ML 50 ML IV SCH ×4 (06:03→18:00)
[2019-04-13 06:33] LABS: BASO # 0.1 x10^3/uL (0.0-0.2); BASO % 1 % (0-3); EOS # 0.3 x10^3/uL (0.0-0.7); EOS % 3 % (0-3); HEMATOCRIT 32.7 % (36.0-47.0); HEMOGLOBIN 10.6 g/dL (12.0-15.5); LYMPH % 19 % (24-48); MEAN CORPUSCULAR HEMOGLOBIN 25 pg (25-35); MEAN CORPUSCULAR HGB CONC 32 g/dL (31-37); MEAN CORPUSCULAR VOLUME 76 fL (79-100); MONO # 0.8 x10^3/uL (0.0-1.1); MONO % 7 % (0-9); NEUT # 7.5 x10^3/uL (1.8-7.7); NEUT % 71 % (31-73); PLATELET COUNT 479 x10^3/uL (140-400); RED CELL DISTRIBUTION WIDTH 18.7 % (11.5-14.5); WHITE BLOOD COUNT 10.7 x10^3/uL (4.0-11.0)
[2019-04-13 06:42] LABS: ALBUMIN 2.3 g/dL (3.4-5.0); ALBUMIN/GLOBULIN RATIO 0.5 (1.0-1.7); ALK PHOS 70 U/L (46-116); ANION GAP 9 (6-14); AST (SGOT) 10 U/L (15-37); BLOOD UREA NITROGEN 8 mg/dL (7-20); BUN/CREATININE RATIO 10 (6-20); CALCIUM 8.9 mg/dL (8.5-10.1); CARBON DIOXIDE 26 mmol/L (21-32); CHLORIDE 105 mmol/L (98-107); CREATININE 0.8 mg/dL (0.6-1.0); GFR 84.6; GLUCOSE 120 mg/dL (70-99); POTASSIUM 3.6 mmol/L (3.5-5.1); SODIUM 140 mmol/L (136-145); TOTAL BILIRUBIN 0.2 mg/dL (0.2-1.0); TOTAL PROTEIN 7.4 g/dL (6.4-8.2)
[2019-04-13 06:43] LABS: ALT (SGPT) < 6 U/L (14-59)
[2019-04-13 07:00] VITALS: BP 144/75
[2019-04-13] MEDS: LINEZOLID 600 MG TABLET PO SCH ×2 (08:58→21:02)
[2019-04-13] MEDS: MULTIVITAMIN with MINERAL TABLET. PO SCH (09:00)
[2019-04-13] MEDS: LACTOBACILLUS RHAMNOSUS GG 1 CAPSULE. PO SCH ×2 (09:00→21:02)
[2019-04-13] MEDS: ASCORBIC ACID 500 MG TABLET PO SCH (09:00)
--- NOTE | 2019-04-13 10:01 | PDOC ---
PROGRESS NOTES Chief Complaint Chief Complaint Past Medical History Past Medical History Past Medical History: Anemia, Bipolar, Depression, Diabetes-Type II, Vascular Disease, Other, obesity Additional Past Medical Histor: VENOUS INSUFFICIENCY, LYMPHADEMA, CATARACTS Past Surgical History: No Surgical History Alcohol Use: None Drug Use: None History of Present Illness History of Present Illness ASSESSMENT AND PLAN: Severe lower extremity cellulitis and open wounds, lesions from chronic venous stasis below the knees bilaterally. venous vascular insufficiency diabetes. Cutaneous lesions diffusely could be neurofibromatosis. lymphedema with elephantiasis, severe protein-caloric malnutrition admitted. intravenous antibiotics, consult Wound Care; home medications; deep vein thrombosis prophylaxis; full code; id consult Prognosis long-term is guarded. may need transfer to [facility] 27 min pt exam, chart review, > 50% of time spent with exam, chart review, pt care coordination Vitals Vitals Vital Signs Date Time Temp Pulse Resp B/P (MAP) Pulse Ox O2 Delivery O2 Flow Rate FiO2 04/13/19 07:00 97.6 62 16 144/75 (98) 100 Room Air 97.6 Physical Exam Physical Exam GENERAL: Alert and oriented x 3 female, well-developed, well-nourished, obese, sitting in chair, in no acute distress, pleasant, cooperative. HEENT: Normocephalic, atraumatic, anicteric, edentulous. No oral lesions. NECK: Supple, no JVD. LUNGS: Clear bilaterally. No wheezing. HEART: S1, S2. No gallops or murmurs. ABDOMEN: Soft, nontender, obese. Bowel sounds present. EXTREMITIES: Both lower extremity wounds are dressed. 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 NEUROLOGIC: Alert and oriented x 3, grossly nonfocal. PSYCHIATRIC: Cooperative, appropriate mood and affect. DERMATOLOGIC: Warm and dry. No generalized rash except for above. General: Alert, Oriented X3, Cooperative, No acute distress Heart: Regular rate Lungs: Clear Abdomen: Normal bowel sounds, Soft, No tenderness Extremities: No cyanosis Labs LABS Laboratory Tests Test 04/12/19 12:15 04/12/19 16:51 04/12/19 20:59 04/13/19 05:11 Glucose (Fingerstick) 147 mg/dL (70-99) 129 mg/dL (70-99) 156 mg/dL (70-99) White Blood Count 10.7 x10^3/uL (4.0-11.0) Red Blood Count 4.30 x10^6/uL (3.50-5.40) Hemoglobin 10.6 g/dL (12.0-15.5) Hematocrit 32.7 % (36.0-47.0) Mean Corpuscular Volume 76 fL (79-100) Mean Corpuscular Hemoglobin 25 pg (25-35) Mean Corpuscular Hemoglobin Concent 32 g/dL (31-37) Red Cell Distribution Width 18.7 % (11.5-14.5) Platelet Count 479 x10^3/uL (140-400) Neutrophils (%) (Auto) 71 % (31-73) Lymphocytes (%) (Auto) 19 % (24-48) Monocytes (%) (Auto) 7 % (0-9) Eosinophils (%) (Auto) 3 % (0-3) Basophils (%) (Auto) 1 % (0-3) Neutrophils # (Auto) 7.5 x10^3/uL (1.8-7.7) Lymphocytes # (Auto) 2.0 x10^3/uL (1.0-4.8) Monocytes # (Auto) 0.8 x10^3/uL (0.0-1.1) Eosinophils # (Auto) 0.3 x10^3/uL (0.0-0.7) Basophils # (Auto) 0.1 x10^3/uL (0.0-0.2) Sodium Level 140 mmol/L (136-145) Potassium Level 3.6 mmol/L (3.5-5.1) Chloride Level 105 mmol/L (98-107) Carbon Dioxide Level 26 mmol/L (21-32) Anion Gap 9 (6-14) Blood Urea Nitrogen 8 mg/dL (7-20) Creatinine 0.8 mg/dL (0.6-1.0) Estimated GFR (Cockcroft-Gault) 84.6 BUN/Creatinine Ratio 10 (6-20) Glucose Level 120 mg/dL (70-99) Calcium Level 8.9 mg/dL (8.5-10.1) Total Bilirubin 0.2 mg/dL (0.2-1.0) Aspartate Amino Transf (AST/SGOT) 10 U/L (15-37) Alanine Aminotransferase (ALT/SGPT) < 6 U/L (14-59) Alkaline Phosphatase 70 U/L (46-116) Total Protein 7.4 g/dL (6.4-8.2) Albumin 2.3 g/dL (3.4-5.0) Albumin/Globulin Ratio 0.5 (1.0-1.7) Test 04/13/19 07:45 Glucose (Fingerstick) 106 mg/dL (70-99) Assessment and Plan Assessmemt and Plan Problems Medical Problems: (1) Bilateral lower leg cellulitis Status: Acute Comment Review of Relevant I have reviewed the following items mariela (where applicable) has been applied. Labs Laboratory Tests Test 04/11/19 11:20 04/11/19 17:00 04/11/19 21:15 04/12/19 07:35 Glucose (Fingerstick) 131 mg/dL (70-99) 171 mg/dL (70-99) 149 mg/dL (70-99) 117 mg/dL (70-99) Test 04/12/19 12:15 04/12/19 16:51 04/12/19 20:59 04/13/19 05:11 Glucose (Fingerstick) 147 mg/dL (70-99) 129 mg/dL (70-99) 156 mg/dL (70-99) White Blood Count 10.7 x10^3/uL (4.0-11.0) Red Blood Count 4.30 x10^6/uL (3.50-5.40) Hemoglobin 10.6 g/dL (12.0-15.5) Hematocrit 32.7 % (36.0-47.0) Mean Corpuscular Volume 76 fL (79-100) Mean Corpuscular Hemoglobin 25 pg (25-35) Mean Corpuscular Hemoglobin Concent 32 g/dL (31-37) Red Cell Distribution Width 18.7 % (11.5-14.5) Platelet Count 479 x10^3/uL (140-400) Neutrophils (%) (Auto) 71 % (31-73) Lymphocytes (%) (Auto) 19 % (24-48) Monocytes (%) (Auto) 7 % (0-9) Eosinophils (%) (Auto) 3 % (0-3) Basophils (%) (Auto) 1 % (0-3) Neutrophils # (Auto) 7.5 x10^3/uL (1.8-7.7) Lymphocytes # (Auto) 2.0 x10^3/uL (1.0-4.8) Monocytes # (Auto) 0.8 x10^3/uL (0.0-1.1) Eosinophils # (Auto) 0.3 x10^3/uL (0.0-0.7) Basophils # (Auto) 0.1 x10^3/uL (0.0-0.2) Sodium Level 140 mmol/L (136-145) Potassium Level 3.6 mmol/L (3.5-5.1) Chloride Level 105 mmol/L (98-107) Carbon Dioxide Level 26 mmol/L (21-32) Anion Gap 9 (6-14) Blood Urea Nitrogen 8 mg/dL (7-20) Creatinine 0.8 mg/dL (0.6-1.0) Estimated GFR (Cockcroft-Gault) 84.6 BUN/Creatinine Ratio 10 (6-20) Glucose Level 120 mg/dL (70-99) Calcium Level 8.9 mg/dL (8.5-10.1) Total Bilirubin 0.2 mg/dL (0.2-1.0) Aspartate Amino Transf (AST/SGOT) 10 U/L (15-37) Alanine Aminotransferase (ALT/SGPT) < 6 U/L (14-59) Alkaline Phosphatase 70 U/L (46-116) Total Protein 7.4 g/dL (6.4-8.2) Albumin 2.3 g/dL (3.4-5.0) Albumin/Globulin Ratio 0.5 (1.0-1.7) Test 04/13/19 07:45 Glucose (Fingerstick) 106 mg/dL (70-99) Laboratory Tests Test 04/12/19 12:15 04/12/19 16:51 04/12/19 20:59 04/13/19 05:11 Glucose (Fingerstick) 147 mg/dL (70-99) 129 mg/dL (70-99) 156 mg/dL (70-99) White Blood Count 10.7 x10^3/uL (4.0-11.0) Red Blood Count 4.30 x10^6/uL (3.50-5.40) Hemoglobin 10.6 g/dL (12.0-15.5) Hematocrit 32.7 % (36.0-47.0) Mean Corpuscular Volume 76 fL (79-100) Mean Corpuscular Hemoglobin 25 pg (25-35) Mean Corpuscular Hemoglobin Concent 32 g/dL (31-37) Red Cell Distribution Width 18.7 % (11.5-14.5) Platelet Count 479 x10^3/uL (140-400) Neutrophils (%) (Auto) 71 % (31-73) Lymphocytes (%) (Auto) 19 % (24-48) Monocytes (%) (Auto) 7 % (0-9) Eosinophils (%) (Auto) 3 % (0-3) Basophils (%) (Auto) 1 % (0-3) Neutrophils # (Auto) 7.5 x10^3/uL (1.8-7.7) Lymphocytes # (Auto) 2.0 x10^3/uL (1.0-4.8) Monocytes # (Auto) 0.8 x10^3/uL (0.0-1.1) Eosinophils # (Auto) 0.3 x10^3/uL (0.0-0.7) Basophils # (Auto) 0.1 x10^3/uL (0.0-0.2) Sodium Level 140 mmol/L (136-145) Potassium Level 3.6 mmol/L (3.5-5.1) Chloride Level 105 mmol/L (98-107) Carbon Dioxide Level 26 mmol/L (21-32) Anion Gap 9 (6-14) Blood Urea Nitrogen 8 mg/dL (7-20) Creatinine 0.8 mg/dL (0.6-1.0) Estimated GFR (Cockcroft-Gault) 84.6 BUN/Creatinine Ratio 10 (6-20) Glucose Level 120 mg/dL (70-99) Calcium Level 8.9 mg/dL (8.5-10.1) Total Bilirubin 0.2 mg/dL (0.2-1.0) Aspartate Amino Transf (AST/SGOT) 10 U/L (15-37) Alanine Aminotransferase (ALT/SGPT) < 6 U/L (14-59) Alkaline Phosphatase 70 U/L (46-116) Total Protein 7.4 g/dL (6.4-8.2) Albumin 2.3 g/dL (3.4-5.0) Albumin/Globulin Ratio 0.5 (1.0-1.7) Test 04/13/19 07:45 Glucose (Fingerstick) 106 mg/dL (70-99) Microbiology 04/11/19 Blood Culture - Preliminary, Resulted NO GROWTH AFTER 2 DAYS 04/08/19 Anaerobic/Aerobic Culture, Resulted Pending 04/08/19 Anaerobic Culture Result 1 (DANIKA), Resulted Pending 04/08/19 Aerobic Culture - Preliminary, Resulted 04/08/19 Aerobic Culture Result 1 (DANIKA) - Preliminary, Resulted 04/08/19 Gram Stain - Final, Resulted 04/08/19 Gram Stain Result 1 (DANIKA) - Final, Resulted 04/08/19 Gram Stain Result 2 (DANIKA) - Final, Resulted 04/08/19 Gram Stain Result 3 (DANIKA) - Final, Resulted 04/08/19 Gram Stain Result 4 (DANIKA) - Final, Resulted Medications Current Medications Vancomycin HCl (Vanco Per Pharmacy) 1 each PRN DAILY PRN MC SEE COMMENTS Last administered on 04/10/19at 14:53; Start 04/08/19 at 21:30; Stop 04/10/19 at 15:49; Status DC Piperacillin Sod/ Tazobactam Sod (Zosyn Per Pharmacy) 1 each PRN DAILY PRN MC SEE COMMENTS; Start 04/08/19 at 21:30 Piperacillin Sod/ Tazobactam Sod 3.375 gm/Sodium Chloride 50 ml @ 100 mls/hr 1X ONCE IV Last administered on 04/08/19at 21:50; Start 04/08/19 at 21:45; Stop 04/08/19 at 22:14; Status DC Vancomycin HCl 2 gm/Sodium Chloride 500 ml @ 250 mls/hr 1X ONCE IV Last administered on 04/09/19at 02:04; Start 04/08/19 at 23:30; Stop 04/09/19 at 01:30; Status DC Piperacillin Sod/ Tazobactam Sod 3.375 gm/Sodium Chloride 50 ml @ 100 mls/hr Q6HRS IV Last administered on 04/13/19at 06:03; Start 04/09/19 at 06:00 Vancomycin HCl 1.5 gm/Sodium Chloride 500 ml @ 250 mls/hr Q12H IV Last ad ministered on 04/10/19at 02:40; Start 04/09/19 at 14:00; Stop 04/10/19 at 14:52; Status DC Vancomycin HCl (Vancomycin Trough Level) 1 each 1X ONCE MC Last administered on 04/10/19at 13:30; Start 04/10/19 at 13:30; Stop 04/10/19 at 13:31; Status DC Lactobacillus Rhamnosus (Culturelle) 1 cap BID PO Last administered on 04/12/19at 21:05; Start 04/09/19 at 21:00 Sodium Chloride (Normal Saline Flush) 3 ml QSHIFT PRN IV AFTER MEDS AND BLOOD DRAWS; Start 04/10/19 at 14:45 Sodium Chloride 1,000 ml @ 60 mls/hr [id number] IV Last administered on 04/12/19at 12:17; Start 04/10/19 at 14:39 Ondansetron HCl (Zofran) 4 mg PRN Q4HRS PRN IV NAUSEA/VOMITING; Start 04/10/19 at 14:45 Acetaminophen (Tylenol) 650 mg PRN Q4HRS PRN PO TEMP OVER 100.4F OR MILD PAIN; Start 04/10/19 at 14:45 Al Hydroxide/Mg Hydroxide (Mylanta Plus Xs) 30 ml PRN DAILY PRN PO HEARTBURN / GAS; Start 04/10/19 at 14:45 Clonidine HCl (Catapres) 0.1 mg PRN Q6HRS PRN PO SBP>160 OR DBP>90; Start 04/10/19 at 14:45 Docusate Sodium (Colace) 100 mg PRN BID PRN PO CONSTIPATION; Start 04/10/19 at 14:45 Albuterol Sulfate (Ventolin Neb Soln) 2.5 mg PRN Q4HRS PRN NEB SHORTNESS OF BREATH; Start 04/10/19 at 14:45 Guaifenesin (Robitussin) 200 mg PRN Q4HRS PRN PO COUGH; Start 04/10/19 at 14:45 Lorazepam (Ativan) 0.5 mg PRN Q4HRS PRN PO ANXIETY / AGITATION; Start 04/10/19 at 14:45 Vancomycin HCl 1.5 gm/Sodium Chloride 500 ml @ 250 mls/hr Q18H IV ; Start 04/10/19 at 17:00; Stop 04/10/19 at 15:48; Status DC Linezolid (Zyvox) 600 mg BID PO Last administered on 04/13/19at 08:58; Start 04/10/19 at 21:00 Micafungin Sodium 100 mg/Dextrose 100 ml @ 100 mls/hr Q24H IV Last administered on 04/12/19at 16:20; Start 04/10/19 at 16:00 Multivitamins (Thera M Plus) 1 tab DAILY PO Last administered on 04/12/19at 09:29; Start 04/12/19 at 09:00 Ascorbic Acid (Vitamin C) 500 mg DAILY PO Last administered on 04/12/19at 09:29; Start 04/12/19 at 09:00 Active Scripts Active Reported Spironolactone 25 Mg Tablet 1 Tab PO DAILY Risperidone 2 Mg Tablet 2 Mg PO DAILY Metformin Hcl 1,000 Mg Tablet 1,000 Mg PO [id number] Metformin Hcl 500 Mg Tablet 500 Mg PO QEVNG Furosemide 20 Mg Tablet 20 Mg PO DAILY Ergocalciferol (Ergocalciferol (Vitamin D2)) 8,000 Unit/1 Ml Drops 50,000 Unit PO WEEKLY B-12 (Cyanocobalamin (Vitamin B-12)) 500 Mcg Tablet 1 Tab PO DAILY 30 Days Atorvastatin Calcium 80 Mg Tablet 10 Mg PO QHS Aspirin 81 Mg Tab.chew 1 Tab PO DAILY Vitals/I & O Vital Sign - Last 24 Hours 04/12/19 04/12/19 04/12/19 04/12/19 11:00 15:00 19:25 19:45 Temp 97.9 98.0 97.8 97.9 98.0 97.8 Pulse 61 67 65 Resp 18 18 18 B/P (MAP) 129/62 (84) 128/65 (86) 176/56 (96) Pulse Ox 99 100 99 O2 Delivery Room Air Room Air Room Air Room Air 04/12/19 04/13/19 04/13/19 23:14 02:57 07:00 Temp 97.6 97.8 97.6 97.6 97.8 97.6 Pulse 71 68 62 Resp 18 18 16 B/P (MAP) 147/65 (92) 140/66 (90) 144/75 (98) Pulse Ox 99 99 100 O2 Delivery Room Air Room Air Room Air Intake and Output 04/12/19 04/12/19 04/13/19 15:00 23:00 07:00 Intake Total 560 ml 220 ml 1860 ml Balance 560 ml 220 ml 1860 ml TYLER WHITE MD Apr 13, 2019 10:01
[2019-04-13 11:00] VITALS: BP 125/54
[2019-04-13] MEDS: IV NORMAL SALINE 1000ML BAG 1,000 ML IV SCH (12:06)
[2019-04-13 15:00] VITALS: BP 130/64
[2019-04-13] MEDS: MICAFUNGIN 100 MG in IV DEXTROSE 5% 100ML 100 ML IV SCH ×2 (16:00→17:57)
--- NOTE | 2019-04-13 16:32 | PDOC ---
Infectious Disease Note Subjective Subjective Leg dressings changed earlier Patient says legs looking better Denies pain/N/V/D/F/C ROS ROS per HPI Vital Sign Vital Signs Vital Signs Date Time Temp Pulse Resp B/P (MAP) Pulse Ox O2 Delivery O2 Flow Rate FiO2 04/13/19 11:00 97.9 52 16 125/54 (77) 100 Room Air 97.9 Physical Exam PHYSICAL EXAM GENERAL: Sitting in the chair, alert, laughing, watching TV. Legs down HEENT: Oral cavity clear, edentulous NECK: Supple, no JVD. LUNGS: Clear bilaterally. No wheezing. HEART: S1, S2. ABDOMEN: Soft, nontender, obese. Bowel sounds present. EXTREMITIES: Both lower extremity wounds are dressed. 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 NEUROLOGIC: Alert and oriented x 3, grossly nonfocal. PSYCHIATRIC: Cooperative, appropriate mood and affect. DERMATOLOGIC: Warm and dry. No generalized rash except for above. PIV Labs Lab Laboratory Tests Test 04/12/19 16:51 04/12/19 20:59 04/13/19 05:11 04/13/19 07:45 Glucose (Fingerstick) 129 mg/dL (70-99) 156 mg/dL (70-99) 106 mg/dL (70-99) White Blood Count 10.7 x10^3/uL (4.0-11.0) Red Blood Count 4.30 x10^6/uL (3.50-5.40) Hemoglobin 10.6 g/dL (12.0-15.5) Hematocrit 32.7 % (36.0-47.0) Mean Corpuscular Volume 76 fL (79-100) Mean Corpuscular Hemoglobin 25 pg (25-35) Mean Corpuscular Hemoglobin Concent 32 g/dL (31-37) Red Cell Distribution Width 18.7 % (11.5-14.5) Platelet Count 479 x10^3/uL (140-400) Neutrophils (%) (Auto) 71 % (31-73) Lymphocytes (%) (Auto) 19 % (24-48) Monocytes (%) (Auto) 7 % (0-9) Eosinophils (%) (Auto) 3 % (0-3) Basophils (%) (Auto) 1 % (0-3) Neutrophils # (Auto) 7.5 x10^3/uL (1.8-7.7) Lymphocytes # (Auto) 2.0 x10^3/uL (1.0-4.8) Monocytes # (Auto) 0.8 x10^3/uL (0.0-1.1) Eosinophils # (Auto) 0.3 x10^3/uL (0.0-0.7) Basophils # (Auto) 0.1 x10^3/uL (0.0-0.2) Sodium Level 140 mmol/L (136-145) Potassium Level 3.6 mmol/L (3.5-5.1) Chloride Level 105 mmol/L (98-107) Carbon Dioxide Level 26 mmol/L (21-32) Anion Gap 9 (6-14) Blood Urea Nitrogen 8 mg/dL (7-20) Creatinine 0.8 mg/dL (0.6-1.0) Estimated GFR (Cockcroft-Gault) 84.6 BUN/Creatinine Ratio 10 (6-20) Glucose Level 120 mg/dL (70-99) Calcium Level 8.9 mg/dL (8.5-10.1) Total Bilirubin 0.2 mg/dL (0.2-1.0) Aspartate Amino Transf (AST/SGOT) 10 U/L (15-37) Alanine Aminotransferase (ALT/SGPT) < 6 U/L (14-59) Alkaline Phosphatase 70 U/L (46-116) Total Protein 7.4 g/dL (6.4-8.2) Albumin 2.3 g/dL (3.4-5.0) Albumin/Globulin Ratio 0.5 (1.0-1.7) Test 04/13/19 11:18 Glucose (Fingerstick) 100 mg/dL (70-99) Micro Microbiology 04/11/19 Blood Culture - Preliminary, Resulted NO GROWTH AFTER 2 DAYS Foot ANAEROBIC RES 1 PENDING AEROBIC CULT Preliminary Preliminary report AEROBIC RES 1 Preliminary Comment Mixed skin susannah including multiple gram negative rods. Objective Assessment Superimposed cellulitis with h/o underlying Chronic venous stasis and lymphedema. Chronic venous stasis and lymphedema with elephantiasis, and cobblestoning like nodules, extensive with superficial ulceration and weeping lesions from chronic venous stasis below the knees bilaterally. Vascular insufficiency. Diabetes mellitus. Anemia. Bipolar disorder. Depression. Hypertension. Hyperlipidemia. Obesity. Plan Plan of Care Zyvox, Zosyn and micfungin Follow up cultures Wound management per wound team. Elevate leg. Optimal edema control. Optimal diabetes control. Attending Co-Sign The patient was seen and interviewed as well as examined at the bedside. The chart was reviewed. The case was discussed. Agree with the plan of care. JALYN ALY APRN Apr 13, 2019 16:31 DAVID SCHAEFER MD Apr 13, 2019 16:42
[2019-04-13 19:00] VITALS: BP 126/90
--- NOTE | 2019-04-13 19:12 | NUR ---
Patient lost her second IV periferal site today, and is refusing to "get stuck" again. I did discuss with her the need for a PICC line for termite treater helper antibiotics and she said she might consider it if her family would come in tomorrow and visit with me and agree to it. She refused to have me call them this evening or have another periferal IV started. Dr Bunn aware.
[2019-04-13 23:00] VITALS: BP 135/86
[2019-04-14] MEDS: IV NORMAL SALINE 1000ML BAG 1,000 ML IV SCH ×2 (01:59→18:39)
[2019-04-14 03:00] VITALS: BP 130/81
[2019-04-14] MEDS: PIPERACILLIN/TAZOBACTAM 3.375 GM in IV NORMAL SALINE 50ML 50 ML IV SCH ×5 (06:00→18:00)
[2019-04-14 07:30] VITALS: BP 138/72
[2019-04-14 11:00] VITALS: BP 126/68
[2019-04-14] MEDS: MULTIVITAMIN with MINERAL TABLET. PO SCH (11:22)
[2019-04-14] MEDS: LINEZOLID 600 MG TABLET PO SCH ×2 (11:23→22:39)
[2019-04-14] MEDS: LACTOBACILLUS RHAMNOSUS GG 1 CAPSULE. PO SCH ×2 (11:23→22:39)
[2019-04-14] MEDS: ASCORBIC ACID 500 MG TABLET PO SCH (11:23)
--- NOTE | 2019-04-14 12:01 | PDOC ---
Infectious Disease Note Subjective Subjective Doing alright No fevers//N/V/D/SOA Vital Sign Vital Signs Vital Signs Date Time Temp Pulse Resp B/P (MAP) Pulse Ox O2 Delivery O2 Flow Rate FiO2 04/14/19 08:00 Room Air 04/14/19 07:30 97.5 74 18 138/72 (94) 99 97.5 Physical Exam PHYSICAL EXAM GENERAL: Sitting side of the bd, alert, legs down HEENT: Oral cavity clear, edentulous NECK: Supple, no JVD. LUNGS: Clear bilaterally. No wheezing. HEART: S1, S2. ABDOMEN: Soft, nontender, obese. Bowel sounds present. EXTREMITIES: Both lower extremity wounds are dressed. 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 NEUROLOGIC: Alert and oriented x 3, grossly nonfocal. PSYCHIATRIC: Cooperative, appropriate mood and affect. DERMATOLOGIC: Warm and dry. No generalized rash except for above. PIV Labs Lab Laboratory Tests Test 04/13/19 16:35 04/13/19 21:14 04/14/19 08:06 Glucose (Fingerstick) 134 mg/dL (70-99) 128 mg/dL (70-99) 129 mg/dL (70-99) Micro Microbiology 04/11/19 Blood Culture - Preliminary, Resulted NO GROWTH AFTER 3 DAYS Foot ANAEROBIC RES 1 Final Comment Bacteroides species, Bacteroides fragilis group AEROBIC RES 1 Final Comment Mixed skin susannah including multiple gram negative rods. Objective Assessment Superimposed cellulitis with h/o underlying chronic venous stasis and lymphedema. Chronic venous stasis and lymphedema with elephantiasis, and cobblestoning like nodules, extensive with superficial ulceration and weeping lesions from chronic venous stasis below the knees bilaterally. Bacteroides & mixed susannah including multiple GNRs Vascular insufficiency. Diabetes mellitus. Anemia. Bipolar disorder. Depression. Hypertension. Hyperlipidemia. Obesity. Plan Plan of Care Zyvox, Zosyn and micfungin Wound management per wound team. Elevate leg. Optimal edema control. Optimal diabetes control. Dressing change and pictures planned for this afternoon D/w nursing Attending Co-Sign The patient was seen and interviewed as well as examined at the bedside. The chart was reviewed. The case was discussed. Agree with the plan of care. SUBLETTE,JALYN C DRILLER HELPER Apr 14, 2019 12:01 DAVID SCHAEFER MD Apr 14, 2019 14:11
--- NOTE | 2019-04-14 13:29 | PDOC ---
[facility] [facility] PROGRESS NOTE Chief Complaint Chief Complaint Past Medical History Past Medical History Past Medical History: Anemia, Bipolar, Depression, Diabetes-Type II, Vascular Disease, Other, obesity Additional Past Medical Histor: VENOUS INSUFFICIENCY, LYMPHADEMA, CATARACTS Past Surgical History: No Surgical History Alcohol Use: None Drug Use: None History of Present Illness History of Present Illness [id number] Patient seen and examined She is resting with no apparent distress on IV Zosyn Chart reviewed Discussed with RN Vitals/I&O Vitals/I&O: Vital Signs Date Time Temp Pulse Resp B/P (MAP) Pulse Ox O2 Delivery O2 Flow Rate FiO2 04/14/19 11:00 97.6 86 18 126/68 (87) 100 Room Air 97.6 I & O 04/13/19 04/13/19 04/14/19 15:00 23:00 07:00 Intake Total 200 ml 740 ml Output Total 300 ml 400 ml Balance -100 ml 340 ml Physical Exam Physical Exam: GENERAL: Team with no apparent distress HEENT: Oral cavity clear, edentulous NECK: Supple, no JVD. LUNGS: Clear bilaterally. No wheezing. HEART: S1, S2. ABDOMEN: Soft, nontender, obese. Bowel sounds present. EXTREMITIES: Both lower extremity wounds are dressed. 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 PSYCHIATRIC: Resting with no apparent distress DERMATOLOGIC: Warm and dry. No generalized rash except for above. PIV General: Alert, Oriented X3, Cooperative, No acute distress Heart: Regular rate Lungs: Clear Abdomen: Normal bowel sounds, Soft, No tenderness Extremities: No cyanosis Labs Labs: Laboratory Tests Test 04/13/19 16:35 04/13/19 21:14 04/14/19 08:06 04/14/19 11:43 Glucose (Fingerstick) 134 mg/dL (70-99) 128 mg/dL (70-99) 129 mg/dL (70-99) 108 mg/dL (70-99) Assessment and Plan Assessmemt and Plan Problems Medical Problems: (1) Bilateral lower leg cellulitis Status: Acute Severe lower extremity cellulitis and open wounds, lesions from chronic venous stasis below the knees bilaterally. venous vascular insufficiency diabetes. Cutaneous lesions diffusely could be neurofibromatosis. lymphedema with elephantiasis, severe protein-caloric malnutrition Plan intravenous antibiotics, consult Wound Care; home medications; deep vein thrombosis prophylaxis; full code; id consult Comment Review of Relevant I have reviewed the following items mariela (where applicable) has been applied. SAL TRENT III DO Apr 14, 2019 13:29
[2019-04-14 15:00] VITALS: BP 129/67
[2019-04-14] MEDS: MICAFUNGIN 100 MG in IV DEXTROSE 5% 100ML 100 ML IV SCH (16:00)
[2019-04-14 19:00] VITALS: BP 131/81
[2019-04-14 23:00] VITALS: BP 141/71
[2019-04-15 03:00] VITALS: BP 142/70
[2019-04-15] MEDS: PIPERACILLIN/TAZOBACTAM 3.375 GM in IV NORMAL SALINE 50ML 50 ML IV SCH ×3 (06:00)
[2019-04-15 07:00] VITALS: BP 147/57
[2019-04-15] MEDS: ASCORBIC ACID 500 MG TABLET PO SCH (07:58)
[2019-04-15] MEDS: MULTIVITAMIN with MINERAL TABLET. PO SCH (07:58)
[2019-04-15] MEDS: LACTOBACILLUS RHAMNOSUS GG 1 CAPSULE. PO SCH (07:58)
[2019-04-15] MEDS: LINEZOLID 600 MG TABLET PO SCH (07:58)
--- NOTE | 2019-04-15 09:52 | PDOC ---
PROGRESS NOTES Chief Complaint Chief Complaint Superimposed cellulitis with h/o underlying chronic venous stasis and lymphedema. Chronic venous stasis and lymphedema with elephantiasis, and cobblestoning like nodules, extensive with superficial ulceration and weeping lesions from chronic venous stasis below the knees bilaterally. Bacteroides & mixed susannah including multiple GNRs Vascular insufficiency. Diabetes mellitus. Anemia. Bipolar disorder. Depression. Hypertension. Hyperlipidemia. Obesity. Plan: Zyvox, Zosyn and micfungin Wound management per wound team. Elevate leg. Optimal edema control. Optimal diabetes control. History of Present Illness History of Present Illness Ms Palmer is a 74yo F w/ PMHx DM2, chronic venous stasis dermatitis residing at custodial, was brought to the ER on 04/09/2019 with worsening drainage from both lower extremities. The patient has chronic venous stasis with elephantiasis, and cobblestoning with venous stasis. The patient has chronic changes of dependent edema, has crusted lesions. She has increased drainage over the several months. Wound care practitioner came to the custodial. She denies any fevers, chills, nausea, vomiting, diarrhea, abdominal pain. White count was elevated at 16.6. Lactate was normal at 1.7. Creatinine was 1.0. The patient underwent x-ray of both lower extremities, which showed cutaneous lesion diffusely, could be from neurofibromatosis, bilateral bunion deformity. The patient was started on IV vancomycin and Zosyn. ID consult has been requested for antibiotic management. Feeling improved today. Skin wrinkling on bilateral legs. D/w ID ok for transition to PO antibiotics and d/c to SNF. Vitals Vitals Vital Signs Date Time Temp Pulse Resp B/P (MAP) Pulse Ox O2 Delivery O2 Flow Rate FiO2 04/15/19 08:00 Room Air 04/15/19 07:00 98.8 82 16 147/57 (87 96 98.8 Physical Exam Physical Exam GENERAL: Team with no apparent distress HEENT: Oral cavity clear, edentulous NECK: Supple, no JVD. LUNGS: Clear bilaterally. No wheezing. HEART: S1, S2. ABDOMEN: Soft, nontender, obese. Bowel sounds present. EXTREMITIES: Both lower extremity wounds are dressed. 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 PSYCHIATRIC: Resting with no apparent distress DERMATOLOGIC: Warm and dry. No generalized rash except for above. PIV General: Alert, Oriented X3, Cooperative, No acute distress Heart: Regular rate Lungs: Clear Abdomen: Normal bowel sounds, Soft, No tenderness Extremities: No cyanosis Labs LABS Laboratory Tests Test 04/14/19 11:43 04/14/19 16:31 04/14/19 21:15 04/15/19 07:19 Glucose (Fingerstick) 108 mg/dL (70-99) 141 mg/dL (70-99) 149 mg/dL (70-99) 100 mg/dL (70-99) Assessment and Plan Assessmemt and Plan Problems Medical Problems: (1) Bilateral lower leg cellulitis Status: Acute Comment Review of Relevant I have reviewed the following items mariela (where applicable) has been applied. Labs Laboratory Tests Test 04/13/19 11:18 04/13/19 16:35 04/13/19 21:14 04/14/19 08:06 Glucose (Fingerstick) 100 mg/dL (70-99) 134 mg/dL (70-99) 128 mg/dL (70-99) 129 mg/dL (70-99) Test 04/14/19 11:43 04/14/19 16:31 04/14/19 21:15 04/15/19 07:19 Glucose (Fingerstick) 108 mg/dL (70-99) 141 mg/dL (70-99) 149 mg/dL (70-99) 100 mg/dL (70-99) Laboratory Tests Test 04/14/19 11:43 04/14/19 16:31 04/14/19 21:15 04/15/19 07:19 Glucose (Fingerstick) 108 mg/dL (70-99) 141 mg/dL (70-99) 149 mg/dL (70-99) 100 mg/dL (70-99) Microbiology 04/11/19 Blood Culture - Preliminary, Resulted NO GROWTH AFTER 4 DAYS 04/08/19 Anaerobic/Aerobic Culture - Final, Complete 04/08/19 Anaerobic Culture Result 1 (DANIKA) - Final, Complete 04/08/19 Aerobic Culture - Final, Complete 04/08/19 Aerobic Culture Result 1 (DANIKA) - Final, Complete 04/08/19 Gram Stain - Final, Complete 04/08/19 Gram Stain Result 1 (DANIKA) - Final, Complete 04/08/19 Gram Stain Result 2 (DANIKA) - Final, Complete 04/08/19 Gram Stain Result 3 (DANIKA) - Final, Complete 04/08/19 Gram Stain Result 4 (DANIKA) - Final, Complete Medications Current Medications Vancomycin HCl (Vanco Per Pharmacy) 1 each PRN DAILY PRN MC SEE COMMENTS Last administered on 04/10/19at 14:53; Start 04/08/19 at 21:30; Stop 04/10/19 at 15:49; Status DC Piperacillin Sod/ Tazobactam Sod (Zosyn Per Pharmacy) 1 each PRN DAILY PRN MC SEE COMMENTS; Start 04/08/19 at 21:30 Piperacillin Sod/ Tazobactam Sod 3.375 gm/Sodium Chloride 50 ml @ 100 mls/hr 1X ONCE IV Last administered on 04/08/19at 21:50; Start 04/08/19 at 21:45; Stop 04/08/19 at 22:14; Status DC Vancomycin HCl 2 gm/Sodium Chloride 500 ml @ 250 mls/hr 1X ONCE IV Last administered on 04/09/19at 02:04; Start 04/08/19 at 23:30; Stop 04/09/19 at 01:30; Status DC Piperacillin Sod/ Tazobactam Sod 3.375 gm/Sodium Chloride 50 ml @ 100 mls/hr Q6HRS IV Last administered on 04/13/19at 12:04; Start 04/09/19 at 06:00 Vancomycin HCl 1.5 gm/Sodium Chloride 500 ml @ 250 mls/hr Q12H IV Last administered on 04/10/19at 02:40; Start 04/09/19 at 14:00; Stop 04/10/19 at 14:52; Status DC Vancomycin HCl (Vancomycin Trough Level) 1 each 1X ONCE MC Last administered on 04/10/19at 13:30; Start 04/10/19 at 13:30; Stop 04/10/19 at 13:31; Status DC Lactobacillus Rhamnosus (Culturelle) 1 cap BID PO Last administered on 04/15/19at 07:58; Start 04/09/19 at 21:00 Sodium Chloride (Normal Saline Flush) 3 ml QSHIFT PRN IV AFTER MEDS AND BLOOD DRAWS; Start 04/10/19 at 14:45 Sodium Chloride 1,000 ml @ 60 mls/hr [id number] IV Last administered on 04/13/19at 12:06; Start 04/10/19 at 14:39 Ondansetron HCl (Zofran) 4 mg PRN Q4HRS PRN IV NAUSEA/VOMITING; Start 04/10/19 at 14:45 Acetaminophen (Tylenol) 650 mg PRN Q4HRS PRN PO TEMP OVER 100.4F OR MILD PAIN; Start 04/10/19 at 14:45 Al Hydroxide/Mg Hydroxide (Mylanta Plus Xs) 30 ml PRN DAILY PRN PO HEARTBURN / GAS; Start 04/10/19 at 14:45 Clonidine HCl (Catapres) 0.1 mg PRN Q6HRS PRN PO SBP>160 OR DBP>90; Start 04/10/19 at 14:45 Docusate Sodium (Colace) 100 mg PRN BID PRN PO CONSTIPATION; Start 04/10/19 at 14:45 Albuterol Sulfate (Ventolin Neb Soln) 2.5 mg PRN Q4HRS PRN NEB SHORTNESS OF BREATH; Start 04/10/19 at 14:45 Guaifenesin (Robitussin) 200 mg PRN Q4HRS PRN PO COUGH; Start 04/10/19 at 14:45 Lorazepam (Ativan) 0.5 mg PRN Q4HRS PRN PO ANXIETY / AGITATION; Start 04/10/19 at 14:45 Vancomycin HCl 1.5 gm/Sodium Chloride 500 ml @ 250 mls/hr Q18H IV ; Start 04/10/19 at 17:00; Stop 04/10/19 at 15:48; Status DC Linezolid (Zyvox) 600 mg BID PO Last administered on 04/15/19at 07:58; Start 04/10/19 at 21:00 Micafungin Sodium 100 mg/Dextrose 100 ml @ 100 mls/hr Q24H IV Last admi nistered on 04/12/19at 16:20; Start 04/10/19 at 16:00 Multivitamins (Thera M Plus) 1 tab DAILY PO Last administered on 04/15/19at 07 :58; Start 04/12/19 at 09:00 Ascorbic Acid (Vitamin C) 500 mg DAILY PO Last administered on 04/15/19at 07:58; Start 04/12/19 at 09:00 Active Scripts Active Reported Spironolactone 25 Mg Tablet 1 Tab PO DAILY Risperidone 2 Mg Tablet 2 Mg PO DAILY Metformin Hcl 1,000 Mg Tablet 1,000 Mg PO [id number] Metformin Hcl 500 Mg Tablet 500 Mg PO QEVNG Furosemide 20 Mg Tablet 20 Mg PO DAILY Ergocalciferol (Ergocalciferol (Vitamin D2)) 8,000 Unit/1 Ml Drops 50,000 Unit PO WEEKLY B-12 (Cyanocobalamin (Vitamin B-12)) 500 Mcg Tablet 1 Tab PO DAILY 30 Days Atorvastatin Calcium 80 Mg Tablet 10 Mg PO QHS Aspirin 81 Mg Tab.chew 1 Tab PO DAILY Vitals/I & O Vital Sign - Last 24 Hours 04/14/19 04/14/19 04/14/19 04/14/19 11:00 15:00 19:00 19:35 Temp 97.6 97.8 99.0 97.6 97.8 99.0 Pulse 86 75 85 Resp 18 18 18 B/P (MAP) 126/68 (87) 129/67 (87) 131/81 (98) Pulse Ox 100 100 99 O2 Delivery Room Air Room Air Room Air Room Air 04/14/19 04/15/19 04/15/19 04/15/19 23:00 03:00 07:00 08:00 Temp 99.3 98.1 98.8 99.3 98.1 98.8 Pulse 104 95 82 Resp 18 16 16 B/P (MAP) 141/71 (94) 142/70 (94) 147/57 (87) Pulse Ox 100 100 96 O2 Delivery Room Air Room Air Room Air Room Air Intake and Output 04/14/19 04/14/19 04/15/19 15:00 23:00 07:00 Intake Total 220 ml 570 ml 700 ml Balance 220 ml 570 ml 700 ml OZ LOVE MD Apr 15, 2019 09:52
--- NOTE | 2019-04-15 10:26 | PDOC ---
Infectious Disease Note Subjective Subjective Doing alright No fevers//N/V/D/SOA Vital Sign Vital Signs Vital Signs Date Time Temp Pulse Resp B/P (MAP) Pulse Ox O2 Delivery O2 Flow Rate FiO2 04/15/19 08:00 Room Air 04/15/19 07:00 98.8 82 16 147/57 (87 96 98.8 Physical Exam PHYSICAL EXAM GENERAL: Team with no apparent distress HEENT: Oral cavity clear, edentulous NECK: Supple, no JVD. LUNGS: Clear bilaterally. No wheezing. HEART: S1, S2. ABDOMEN: Soft, nontender, obese. Bowel sounds present. EXTREMITIES: Both lower extremity wounds are dressed. 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 PSYCHIATRIC: Resting with no apparent distress DERMATOLOGIC: Warm and dry. No generalized rash except for above. PIV Labs Lab Laboratory Tests Test 04/14/19 11:43 04/14/19 16:31 04/14/19 21:15 04/15/19 07:19 Glucose (Fingerstick) 108 mg/dL (70-99) 141 mg/dL (70-99) 149 mg/dL (70-99) 100 mg/dL (70-99) Micro Microbiology 04/11/19 Blood Culture - Preliminary, Resulted NO GROWTH AFTER 4 DAYS 04/08/19 Anaerobic/Aerobic Culture - Final, Complete 04/08/19 Anaerobic Culture Result 1 (DANIKA) - Final, Complete 04/08/19 Aerobic Culture - Final, Complete 04/08/19 Aerobic Culture Result 1 (DANIKA) - Final, Complete 04/08/19 Gram Stain - Final, Complete 04/08/19 Gram Stain Result 1 (DANIKA) - Final, Complete 04/08/19 Gram Stain Result 2 (DANIKA) - Final, Complete 04/08/19 Gram Stain Result 3 (DANIKA) - Final, Complete 04/08/19 Gram Stain Result 4 (DANIKA) - Final, Complete Objective Assessment Superimposed cellulitis with h/o underlying chronic venous stasis and lymphedema. Chronic venous stasis and lymphedema with elephantiasis, and cobblestoning like nodules, extensive with superficial ulceration and weeping lesions from chronic venous stasis below the knees bilaterally. Bacteroides & mixed susannah including multiple GNRs Vascular insufficiency. Diabetes mellitus. Anemia. Bipolar disorder. Depression. Hypertension. Hyperlipidemia. Obesity. Plan Plan of Care Zyvox, Zosyn and micfungin Wound management per wound team. Elevate leg. Optimal edema control. Optimal diabetes control. Dressing change and pictures planned for this afternoon D/w nursing DAVID SCHAEFER MD Apr 15, 2019 10:26
[2019-04-15] MEDS: IV NORMAL SALINE 1000ML BAG 1,000 ML IV SCH (10:30)
--- NOTE | 2019-04-15 10:40 | PDOC ---
Infectious Disease Note Subjective Subjective Doing alright No fevers//N/V/D/SOA Vital Sign Vital Signs Vital Signs Date Time Temp Pulse Resp B/P (MAP) Pulse Ox O2 Delivery O2 Flow Rate FiO2 04/15/19 08:00 Room Air 04/15/19 07:00 98.8 82 16 147/57 (87 96 98.8 Physical Exam PHYSICAL EXAM GENERAL: Team with no apparent distress HEENT: Oral cavity clear, edentulous NECK: Supple, no JVD. LUNGS: Clear bilaterally. No wheezing. HEART: S1, S2. ABDOMEN: Soft, nontender, obese. Bowel sounds present. EXTREMITIES: Both lower extremity wounds are dressed. 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 PSYCHIATRIC: Resting with no apparent distress DERMATOLOGIC: Warm and dry. No generalized rash except for above. PIV Labs Lab Laboratory Tests Test 04/14/19 11:43 04/14/19 16:31 04/14/19 21:15 04/15/19 07:19 Glucose (Fingerstick) 108 mg/dL (70-99) 141 mg/dL (70-99) 149 mg/dL (70-99) 100 mg/dL (70-99) Micro Microbiology 04/11/19 Blood Culture - Preliminary, Resulted NO GROWTH AFTER 4 DAYS 04/08/19 Anaerobic/Aerobic Culture - Final, Complete 04/08/19 Anaerobic Culture Result 1 (DANIKA) - Final, Complete 04/08/19 Aerobic Culture - Final, Complete 04/08/19 Aerobic Culture Result 1 (DANIKA) - Final, Complete 04/08/19 Gram Stain - Final, Complete 04/08/19 Gram Stain Result 1 (DANIKA) - Final, Complete 04/08/19 Gram Stain Result 2 (DANIKA) - Final, Complete 04/08/19 Gram Stain Result 3 (DANIKA) - Final, Complete 04/08/19 Gram Stain Result 4 (DANIKA) - Final, Complete Objective Assessment Superimposed cellulitis with h/o underlying chronic venous stasis and lymphedema. Chronic venous stasis and lymphedema with elephantiasis, and cobblestoning like nodules, extensive with superficial ulceration and weeping lesions from chronic venous stasis below the knees bilaterally. Bacteroides & mixed susannah including multiple GNRs Vascular insufficiency. Diabetes mellitus. Anemia. Bipolar disorder. Depression. Hypertension. Hyperlipidemia. Obesity. Plan Plan of Care po augmentin Wound management per wound team. Elevate leg. Optimal edema control. Optimal diabetes control. leg elevation Dressing change and pictures planned for this afternoon D/w nursing DAVID SCHAEFER MD Apr 15, 2019 10:40
[2019-04-15 11:00] VITALS: BP 121/65
[2019-04-15] MEDS ORDERED: LACT1CAP19 PO (13:43)
[2019-04-15] MEDS ORDERED: ACET325T9 PO (13:43)
[2019-04-15] MEDS ORDERED: AMOX1TAB11 PO (13:43)
--- NOTE | 2019-04-15 13:45 | SNU/HH DC ---
DISCHARGE ORDERS DISCHARGE INFORMATION: DISCHARGE DATE: Apr 15, 2019 FINAL DIAGNOSIS Problems Medical Problems: (1) Bilateral lower leg cellulitis Status: Acute CONDITION ON DISCHARGE: Stable CODE STATUS: Code Status: Full POST DISCHARGE ORDERS: ACTIVITY ORDERS: Resume previous activity WEIGHT BEARING STATUS: As tolerated DIET AFTER DISCHARGE: ADA WOUND/INCISION CARE: Keep wound elevated, Change dressing CHECKS AFTER DISCHARGE: CHECKS AFTER DISCHARGE: Check blood press - daily, Check blood sugar, ac/hs TREATMENT/EQUIPMENT ORDERS: Physical Therapy For: Evalulation/Treatment Occupational Therapy For: Evaluation/Treatment DISCHARGE MEDICATIONS: Home Meds Active Scripts Lactobacillus Rhamnosus Gg (CULTURELLE) 1 Each Cap.sprink, 1 CAP PO BID for Cellulitis for 10 Days, #20 CAP Prov:OZ LOVE MD 04/15/19 Acetaminophen (TYLENOL) 325 Mg Tablet, 650 MG PO PRN Q4HRS PRN for TEMP OVER 100.4F OR MILD PAIN for 30 Days, #120 TAB Prov:OZ LOVE MD 04/15/19 Amoxicillin/Potassium Clav (AMOX TR-K CLV 875-125 MG TAB) 1 Each Tablet, 1 TAB PO BID for Cellulitis for 7 Days, #14 TAB Prov:OZ LOVE MD 04/15/19 Reported Medications Spironolactone (SPIRONOLACTONE) 25 Mg Tablet, 1 TAB PO DAILY for fluid retention, #90 TAB 1 Refill 04/09/19 Risperidone (RISPERIDONE) 2 Mg Tablet, 2 MG PO DAILY for bipolar, TAB 04/09/19 Metformin Hcl (METFORMIN HCL) 1,000 Mg Tablet, 1000 MG PO DAILYWBKFT for ANTI- DIABETIC, TAB 0 Refills 04/09/19 Metformin Hcl (METFORMIN HCL) 500 Mg Tablet, 500 MG PO QEVNG for ANTI-DIABETIC, TAB 0 Refills 04/09/19 Furosemide (FUROSEMIDE) 20 Mg Tablet, 20 MG PO DAILY for edema, TAB 04/09/19 Ergocalciferol (Vitamin D2) (ERGOCALCIFEROL) 8,000 Unit/1 Ml Drops, 34171 UNIT PO WEEKLY for supplement, DROP 04/09/19 Cyanocobalamin (Vitamin B-12) (B-12) 500 Mcg Tablet, 1 TAB PO DAILY for supplement for 30 Days, #30 TAB 0 Refills 04/09/19 Atorvastatin Calcium (Atorvastatin Calcium) 80 Mg Tablet, 10 MG PO QHS for FOR HIGH CHOLESTEROL, TAB 04/09/19 Aspirin (ASPIRIN) 81 Mg Tab.chew, 1 TAB PO DAILY for pain, #30 TAB 3 Refills 04/09/19 OZ LOVE MD Apr 15, 2019 13:45
--- NOTE | 2019-04-15 13:55 | NUR ---
[facility] following. Discussed with RN, pt ready to discharge back to [facility]. [facility] faxed discharge orders and scripts. [facility] awaiting transportation time. [facility] notified. Addendum: 04/15/19 at 1450 by KATHI GONSALES Pt will be transported between [id number], back to [facility]. [facility] notified.
--- NOTE | 2019-04-15 15:34 | NUR ---
Discharge Note: PT DISCHARGED TO [facility]. PT LEFT FACILITY VIA EMS TRANSPORT AT 1510. PT STABLE AND ALERT UPON DISCHARGE. PT HAD NO IV ACCESS TO PULL UPON DISCHARGE. REPORT CALLED TO MAC AT [facility] AT 1300, EDUCATED ABOUT DISCHARGE MEDICATIONS, DISCHARGE INSTRUCTIONS, AND FOLLOW-UP CARE. NO CONCERNS VOICED AT THIS TIME. PT LEFT WITH ALL PERSONAL BELONGINGS. WILBERTO ALVARADO Discharge instructions and discharge home medications reviewed with Patient and a copy given. All questions have been answered and understanding verbalized.
[2019-04-15] MEDS ORDERED: AMOXICILLIN/K CLAV 875/125MG TABLET. PO SCH (21:00)
--- NOTE | 2019-04-15 23:37 | PDOC3 ---
Discharge Summary Visit Information Date of Admission: Apr 08, 2019 Date of Discharge: Apr 15, 2019 Admitting Diagnosis: Bilateral LE cellulitis Final Diagnosis Problems Medical Problems: (1) Bilateral lower leg cellulitis Status: Acute Brief Hospital Course Allergies Allergies Coded Allergies Type Severity Reaction Last Updated Verified peanut Allergy Severe 04/10/19 Yes Vital Signs Vital Signs Date Time Temp Pulse Resp B/P (MAP) Pulse Ox O2 Delivery O2 Flow Rate FiO2 04/15/19 11:00 98.6 81 16 121/65 (83) 99 Room Air 98.6 Lab Results Laboratory Tests Test 04/14/19 08:06 04/14/19 11:43 04/14/19 16:31 04/14/19 21:15 Glucose (Fingerstick) 129 mg/dL (70-99) 108 mg/dL (70-99) 141 mg/dL (70-99) 149 mg/dL (70-99) Test 04/15/19 07:19 04/15/19 10:47 Glucose (Fingerstick) 100 mg/dL (70-99) 145 mg/dL (70-99) Laboratory Tests Test 04/15/19 07:19 04/15/19 10:47 Glucose (Fingerstick) 100 mg/dL (70-99) 145 mg/dL (70-99) Brief Hospital Course Ms Palmer is a 74yo F w/ PMHx DM2, chronic venous stasis dermat[facility], was brought to the ER on 04/09/2019 with worsening drainage from both lower extremities. The patient has chronic venous stasis with elephant iasis, and cobblestoning with venous stasis. The patient has chronic changes of dependent edema, has crusted lesions. She has increased drainage over the several months. W[facility] care practitioner [facility]. She denies any fevers, chills, nausea, vomiting, diarrhea, abdominal pain. White count was elevated at 16.6. Lactate was normal at 1.7. Creatinine was 1.0. The patient underwent x-ray of both lower extremities, which showed cutaneous lesion diffusely, could be from neurofibromatosis, bilateral bunion deformity. The patient was started on IV vancomycin and Zosyn. ID consult has been requested for antibiotic management. Feeling improved today. Skin wrinkling on bilateral legs. D/w ID ok for transition to PO antibiotics and d/c to SNF. - Augmentin 1 week Problem list: Superimposed cellulitis with h/o underlying chronic venous stasis and lymphedema. Chronic venous stasis and lymphedema with elephantiasis, and cobblestoning like nodules, extensive with superficial ulceration and weeping lesions from chronic venous stasis below the knees bilaterally. Bacteroides & mixed susannah including multiple GNRs Vascular insufficiency. Diabetes mellitus. Anemia. Bipolar disorder. Depression. Hypertension. Hyperlipidemia. Obesity. Plan: Zyvox, Zosyn and micfungin Wound management per wound team. Elevate leg. Optimal edema control. Optimal diabetes control. Greater than 30 minutes spent on d/c to [facility] Discharge Information Condition at Discharge: Improved Follow Up: Weeks (1) Disposition/Orders: D/C to Another Facility ([facility]) Scheduled Amoxicillin/Potassium Clav (Amox Tr-K Clv 875-125 Mg Tab) 1 Each Tablet, 1 TAB PO BID for Cellulitis for 7 Days, #14 Prescribed by: OZ LOVE MD on 04/15/19 1343 Aspirin (Aspirin) 81 Mg Tab.chew, 1 TAB PO DAILY for pain, #30 Ref 3 (Reported) Entered as Reported by: TARUN VAZQUEZ on 04/09/19655 Last Action: New Order on 04/09/19655 by TARUN HER Atorvastatin Calcium (Atorvastatin Calcium) 80 Mg Tablet, 10 MG PO QHS for FOR HIGH CHOLESTEROL, (Reported) Entered as Reported by: TARUN VAZQUEZ on 04/09/19655 Last Action: New Order on 04/09/19655 by TARUN HER Cyanocobalamin (Vitamin B-12) (B-12) 500 Mcg Tablet, 1 TAB PO DAILY for supplement for 30 Days, #30 Ref 0 (Reported) Entered as Reported by: TARUN VAZQUEZ on 04/09/19655 Last Action: New Order on 04/09/19655 by TARUN HER Ergocalciferol (Vitamin D2) (Ergocalciferol) 8,000 Unit/1 Ml Drops, 50,000 UNIT PO WEEKLY for supplement, (Reported) Entered as Reported by: TARUN VAZQUEZ on 04/09/19655 Last Action: New Order on 04/09/19655 by TARUN HER Furosemide (Furosemide) 20 Mg Tablet, 20 MG PO DAILY for edema, (Reported) Entered as Reported by: TARUN VAZQUEZ on 04/09/19655 Last Action: New Order on 04/09/19655 by TARUN HER Lactobacillus Rhamnosus Gg (Culturelle) 1 Each Cap.sprink, 1 CAP PO BID for Cellulitis for 10 Days, #20 Prescribed by: OZ LOVE MD on 04/15/19 1343 Metformin Hcl (Metformin Hcl) 500 Mg Tablet, 500 MG PO QEVNG for ANTI-DIABETIC, Ref 0 (Reported) Entered as Reported by: TARUN VAZQUEZ on 04/09/19655 Last Action: New Order on 04/09/19655 by TARUN HER Metformin Hcl (Metformin Hcl) 1,000 Mg Tablet, 1,000 MG PO DAILYWBKFT for ANTI- DIABETIC, Ref 0 (Reported) Entered as Reported by: TARUN VAZQUEZ on 04/09/19655 Last Action: New Order on 04/09/19655 by TARUN HER Risperidone (Risperidone) 2 Mg Tablet, 2 MG PO DAILY for bipolar, (Reported) Entered as Reported by: TARUN VAZQUEZ on 04/09/19655 Last Action: New Order on 04/09/19655 by TARUN HER Spironolactone (Spironolactone) 25 Mg Tablet, 1 TAB PO DAILY for fluid retention, #90 Ref 1 (Reported) Entered as Reported by: TARUN VAZQUEZ on 04/09/19655 Last Action: New Order on 04/09/19655 by TARUN HER Scheduled PRN Acetaminophen (Tylenol) 325 Mg Tablet, 650 MG PO PRN Q4HRS PRN for TEMP OVER 100.4F OR MILD PAIN for 30 Days, #120 Prescribed by: OZ LOVE MD on 04/15/19 1343 OZ LOVE MD Apr 15, 2019 23:37
== END 2019-04-15 15:14 | DRG 604 ==
LOC: ER 16:02 → 4 NORTH 21:20
PROVIDERS: ADMIT Internal Medicine; ATTEND Internal Medicine
DX: S91.302A Unspecified open wound, left foot, initial encounter (principal); E43 Unspecified severe protein-calorie malnutrition; L03.116 Cellulitis of left lower limb; L03.115 Cellulitis of right lower limb; I89.0 Lymphedema, not elsewhere classified; S91.301A Unspecified open wound, right foot, initial encounter; F31.9 Bipolar disorder, unspecified; E11.9 Type 2 diabetes mellitus without complications; F41.9 Anxiety disorder, unspecified; I10 Essential (primary) hypertension; E78.5 Hyperlipidemia, unspecified; I87.8 Other specified disorders of veins; D64.9 Anemia, unspecified; M21.611 Bunion of right foot; M21.612 Bunion of left foot; E66.9 Obesity, unspecified; Y93.89 Activity, other specified; Y92.89 Other specified places as the place of occurrence of the external cause; Y99.8 Other external cause status; Z68.35 Body mass index [BMI] 35.0-35.9, adult; Z91.010 Allergy to peanuts; Z82.49 Family history of ischemic heart disease and other diseases of the circulatory system
CPT/HCPCS: 36415; 73630; 80048; 80053; 80202; 82553; 82962; 83605; 85007; 85025; 87040; 87071; 87075; 96365; J2248; J2543; J3370; J7030; J7040; 97116; 97530; 97535; 99285-25; G0378